=== PATIENT | male | born 1960 | race Caucasian/White ===

== ENCOUNTER 2018-01-07 11:20 | Observation (INO) | payer OTHER ==
[2018-01-07] MEDS ORDERED: ASPIRIN 81 MG CHEWABLE TABLETS PO ONE (11:34)
[2018-01-07] MEDS ORDERED: dilTIAZem HCL 50 MG/10 ML - 10 ML VIAL IVPUSH ONE (11:34)
[2018-01-07] MEDS ORDERED: SODIUM CHLORIDE 1,000 ML IV SCH (11:45)
[2018-01-07] MEDS ORDERED: dilTIAZem HCL 125 MG/25 ML - 25 ML VIAL ONE (11:48)
[2018-01-07] MEDS ORDERED: ACETAMINOPHEN 325 MG TABLET (FP) PO ONE (11:51)
[2018-01-07 12:10] LABS: BASO % 0.6 % (0-2.0); EOS % 1.6 % (0-4.5); HEMATOCRIT 47.3 % (35.4-49); HEMOGLOBIN 16.3 GM/dL (11.7-16.9); LYMPH % 25.4 % (8-40); MCH 31.5 pg (25.7-33.7); MCHC 34.5 g/dl (32.0-35.9); MEAN CELL VOLUME 91.3 fl (80-96); MEAN PLT VOLUME 8.1 fl (7.5-11.1); MONO % 8.9 % (3.8-10.2); NEUT % 63.5 % (42.8-82.8); PLATELET COUNT 135 K/MM3 (134-434); RBC 5.18 M/mm3 (4.00-5.60); RDW 13.3 % (11.9-15.9); WHITE BLOOD COUNT 6.6 K/mm3 (4.0-10.0)
[2018-01-07] MEDS ORDERED: ASPIRIN 81 MG CHEWABLE TABLETS ONE (12:24)
[2018-01-07] MEDS ORDERED: ACETAMINOPHEN 325 MG TABLET (FP) ONE (12:24)
[2018-01-07 12:26] LABS: INR 1.04 (0.82-1.09); PROTHROMBIN TIME (PATIENT) 11.7 SEC (9.98-11.88)
[2018-01-07 12:46] LABS: ALBUMIN 4.1 g/dl (3.4-5.0); ANION GAP 9 (8-16); BILIRUBIN,TOTAL 0.8 mg/dL (0.2-1.0); BLOOD UREA NITROGEN 11 mg/dL (7-18); CALCIUM 8.6 mg/dL (8.5-10.1); CHLORIDE 104 mmol/L (98-107); CO2 25 mmol/L (21-32); CREATININE 0.8 mg/dL (0.7-1.3); GLUCOSE,RANDOM 119 mg/dL (74-106); MAGNESIUM 2.2 mg/dL (1.8-2.4); POTASSIUM 3.9 mmol/L (3.5-5.1); SGOT/AST 20 U/L (15-37); SGPT/ALT 40 U/L (12-78); SODIUM 138 mmol/L (136-145); TOT PROT 7.5 g/dl (6.4-8.2)
[2018-01-07 12:49] LABS: ALK PHOS 125 U/L (45-117)
--- NOTE | 2018-01-07 14:08 | EKG ---
Test Reason : Blood Pressure : / mmHG Vent. Rate : 151 BPM Atrial Rate : 151 BPM P-R Int : 132 ms QRS Dur : 140 ms QT Int : 278 ms P-R-T Axes : 000 038 -73 degrees QTc Int : 440 ms ATRIAL FLUTTER WITH 2 TO 1 BLOCK NON-SPECIFIC INTRA-VENTRICULAR CONDUCTION BLOCK NONSPECIFIC T WAVE ABNORMALITY ABNORMAL ECG NO PREVIOUS ECGS AVAILABLE Confirmed by MD John, Anthony ([id number]) on 01/07/2018 2:08:17 PM Referred By: Confirmed By:Anthony Lopez MD
--- NOTE | 2018-01-07 14:24 | PDOC ---
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 HEAD: Normal EYES: PERRLA, EOMI, sclera anicteric, conjunctiva clear. ENT: Ears normal, nares patent, oropharynx clear without exudates. Moist mucous membranes. NECK: Normal range of motion, supple without lymphadenopathy, JVD, LUNGS: Breath sounds equal, clear to auscultation bilaterally. No wheezes, and no crackles. HEART: Irregularly irregular, tachycardiac ABDOMEN: Soft, nontender, normoactive bowel sounds. No guarding, no rebound. No masses palpable. EXTREMITIES: Normal range of motion, no edema. No clubbing or cyanosis. No erythema, or tenderness. NEUROLOGICAL: Cranial nerves II through XII grossly intact. Normal speech. No focal neurological deficits. MUSCULOSKELETAL: Back non-tender to palpation, no CVA tenderness SKIN: Warm, Dry, normal turgor, no rashes or lesions noted. - Medical Decision Making 01/07/18 14:25 57-year-old male presenting to the emergency department with new onset atrial fibrillation. Patient written for Cardizem 20 mg IV Patient given normal saline fluids Labs sent Pt should have TSH added on No signs or symptoms of PE 01/07/18 14:26 Laboratory Tests 01/07/18 01/07/18 01/07/18 11:55 11:55 11:55 WBC 6.6 Hgb 16.3 Hct 47.3 Plt Count 135 Neutrophils % 63.5 Lymphocytes % 25.4 INR 1.04 BUN 11 Creatinine 0.8 Creatine Kinase 281 Creatine Kinase Index 1.1 CK-MB (CK-2) 3.101 Troponin I < 0.02 Case reviewed with Hospitalist team Will admit to tele Pt seen in the ER by Dr Cortez Pt to be started on Eliquis and Metoprolol 25 mg po BID Clinical Impression: New onset Afib, initial presentation 01/07/18 18:59 EKG 11:26AM: Aflutter rate of 151 bpm, Right axis deviation, ST depressions inferiorly, t waves upright EKG 12:55: Aflutter rate of 82 bpm, axis nml, intervals nml, t wave inversions v5, v6, biphasic v4 Discharge Disposition - Diagnosis Afib Qualifiers: Atrial fibrillation type: unspecified Qualified Code(s): I48.91 - Unspecified atrial fibrillation - Discharge Dispostion Condition at time of disposition: Stable Admit: Yes - Referrals - Patient Instructions - Post Discharge Activity
[2018-01-07] MEDS ORDERED: APIXABAN 5 MG TABLET PO ONE (14:28)
--- NOTE | 2018-01-07 16:26 | HP ---
CHIEF COMPLAINT: palpitations PCP: HISTORY OF PRESENT ILLNESS: Patient is 57 year old male with a significant past medical history of diabetes mellitus, hypertriglyceridemia, and psoriasis. 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 Patient states that he has had palpitaion for the past several months. He denies chest pain, denies shortness of breath. He states that at times he feels that his heart races, but does cause him any shortness of breath. In the ED he is in no acute distress, at the bedside. No chest pain, tolerating room air. ER course was notable for: (1) ekg: aflutter 151 (2) trop neg x 1 (3) Recent Travel: PAST MEDICAL HISTORY: PAST SURGICAL HISTORY: Social History: Smoking: Alcohol: Drugs: Family History: Allergies No Known Allergies Allergy (Verified 01/07/18 11:24) HOME MEDICATIONS: Home Medications Medication Instructions Recorded No Home Medications 0 dose .ROUTE UTDICT 10/09/13 Ibuprofen [Motrin -] 600 mg PO TID #21 tablet 09/28/14 Methocarbamol [Robaxin -] 1,000 mg PO BID #28 tablet 09/28/14 REVIEW OF SYSTEMS CONSTITUTIONAL: Absent: fever, chills, diaphoresis, generalized weakness, malaise, loss of appetite, weight change HEENT: Absent: rhinorrhea, nasal congestion, throat pain, throat swelling, difficulty swallowing, mouth swelling, ear pain, eye pain, visual changes RESPIRATORY: Absent: cough, shortness of breath, dyspnea with exertion, orthopnea, wheezing, stridor, hemoptysis GASTROINTESTINAL: Absent: abdominal pain, abdominal distension, nausea, vomiting, diarrhea, constipation, melena, hematochezia GENITOURINARY: Absent: dysuria, frequency, urgency, hesitancy, hematuria, flank pain, genital pain MUSCULOSKELETAL: Absent: myalgia, arthralgia, joint swelling, back pain, neck pain HEMATOLOGIC/IMMUNOLOGIC: Absent: easy bleeding, easy bruising, lymphadenopathy, frequent infections ENDOCRINE: Absent: unexplained weight gain, unexplained weight loss, heat intolerance, cold intolerance NEUROLOGIC: Absent: headache, focal weakness or paresthesias, dizziness, unsteady gait, seizure, mental status changes, bladder or bowel incontinence PSYCHIATRIC: Absent: anxiety, depression, suicidal or homicidal ideation, hallucinations. PHYSICAL EXAMINATION Vital Signs - 24 hr 01/07/18 01/07/18 01/07/18 11:28 13:27 14:26 Temperature 98.2 F Pulse Rate 150 H Pulse Rate [ 74 78 Left Radial] Respiratory 18 18 16 Rate Blood Pressure 134/94 Blood Pressure 107/62 120/90 [Right Arm] O2 Sat by Pulse 100 98 98 Oximetry (%) 01/07/18 15:20 Temperature Pulse Rate Pulse Rate [ 78 Left Radial] Respiratory 20 Rate Blood Pressure Blood Pressure 108/70 [Right Arm] O2 Sat by Pulse Oximetry (%) GENERAL: The patient is in no acute distress. Awake, alert and oriented x 3 HEAD: Normal, no signs of trauma EYES: PERRLA, EOMI, sclera anicteric, conjunctiva clear. ENT: Ears normal, nares patent, oropharynx clear without exudates. Moist mucous membranes. NECK: Normal range of motion, supple without lymphadenopathy, JVD, LUNGS: Breath sounds equal, clear to auscultation bilaterally. No wheezes, and no crackles. HEART: Irregularly irregular, tachycardiac ABDOMEN: Soft, nontender, normoactive bowel sounds. No guarding, no rebound. No masses palpable. EXTREMITIES: Normal range of motion, no edema. No clubbing or cyanosis. No erythema, or tenderness. NEUROLOGICAL: Cranial nerves II through XII grossly intact. Normal speech. No focal neurological deficits. MUSCULOSKELETAL: Back non-tender to palpation, no CVA tenderness SKIN: generalized psioriosis Laboratory Results - last 24 hr 01/07/18 01/07/18 01/07/18 11:55 11:55 11:55 WBC 6.6 RBC 5.18 Hgb 16.3 Hct 47.3 MCV 91.3 MCH 31.5 MCHC 34.5 RDW 13.3 Plt Count 135 MPV 8.1 Neutrophils % 63.5 Lymphocytes % 25.4 Monocytes % 8.9 Eosinophils % 1.6 Basophils % 0.6 PT with INR 11.70 INR 1.04 Sodium 138 Potassium 3.9 Chloride 104 Carbon Dioxide 25 Anion Gap 9 BUN 11 Creatinine 0.8 Creat Clearance w eGFR > 60 Random Glucose 119 H Calcium 8.6 Magnesium 2.2 Total Bilirubin 0.8 AST 20 ALT 40 Alkaline Phosphatase 125 H Creatine Kinase 281 Creatine Kinase Index 1.1 CK-MB (CK-2) 3.101 Troponin I < 0.02 Total Protein 7.5 Albumin 4.1 TSH 01/07/18 11:55 WBC RBC Hgb Hct MCV MCH MCHC RDW Plt Count MPV Neutrophils % Lymphocytes % Monocytes % Eosinophils % Basophils % PT with INR INR Sodium Potassium Chloride Carbon Dioxide Anion Gap BUN Creatinine Creat Clearance w eGFR Random Glucose Calcium Magnesium Total Bilirubin AST ALT Alkaline Phosphatase Creatine Kinase Creatine Kinase Index CK-MB (CK-2) Troponin I Total Protein Albumin TSH 1.79 ASSESSMENT/PLAN: Patient is 57 year old male with a significant past medical history of diabetes mellitus, hypertriglyceridemia, and psoriasis. 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 Patient states that he has had palpitaion for the past several months. He denies chest pain, denies shortness of breath. He states that at times he feels that his heart races, but does cause him any shortness of breath. In the ED he is in no acute distress, at the bedside. No chest pain, tolerating room air. Cardiology Atrial Fibrillarion with RVR, acute Rule out ACS ekg: aflutter 151 Trend troponins Rate control with metoprololm 50mg bid Lisinopril Eliquis 5mg BID Monitor on tele Possible synchronized cardioversion if remains in afib. Cardiology following Endocrine Diabetes Mellitus hmga1c in a.m. Monitor BGMs, Novolog On Home Metformin HLD, chronic Lipid panel in a.m. Skin Psiorosis, chronic outpatient followup Previously on Methotraxate F.E.N. Fluids: tolerating PO Electrolytes: monitor Nutrition: diabetic diet Prophylaxis: DVT: Elilquis BID GI: deferred Disposition. full code. Visit type - Emergency Visit Emergency Visit: Yes ED Registration Date: 01/07/18 Care time: The patient presented to the Emergency Department on the above date and was hospitalized for further evaluation of their emergent condition. - New Patient This patient is new to me today: Yes Date on this admission: 01/07/18 - Critical Care Critical Care patient: No
--- NOTE | 2018-01-07 16:35 | EKG ---
Test Reason : Blood Pressure : / mmHG Vent. Rate : 082 BPM Atrial Rate : 208 BPM P-R Int : 000 ms QRS Dur : 116 ms QT Int : 388 ms P-R-T Axes : 000 043 052 degrees QTc Int : 453 ms ATRIAL FIBRILLATION T WAVE ABNORMALITY, CONSIDER LATERAL ISCHEMIA ABNORMAL ECG Confirmed by MD John, Anthony ([id number]) on 01/07/2018 4:35:31 PM Referred By: Confirmed By:Anthony Lopez MD
--- NOTE | 2018-01-07 16:38 | PDOC ---
History of Present Illness - General Chief Complaint: Palpitations Stated Complaint: CHEST PAIN (PCP SENT) Time Seen by Provider: 01/07/18 11:33 History Source: Patient Exam Limitations: No Limitations - History of Present Illness Initial Comments: 01/07/18 17:07 Patient is 57M with history of DM, hypertriglyceridemia, and psoriasis here today with a complaint of palpitations. He states that he's been having runs of palpitations for the past few days, and paperwork from his agricultural extension specialist states that he's had problems for the past several months. He denies chest pain, saying that it just feels like his heart is racing. He also denies shortness of breath. He denies nausea, vomiting, fevers and chills. Paperwork from his agricultural extension specialist states that he was found to be in stable afultter at 150 as an outpatient. Past History - Past Medical History Allergies/Adverse Reactions: Allergies Allergy/AdvReac Type Severity Reaction Status Date / Time No Known Allergies Allergy Verified 01/07/18 11:24 Home Medications: Ambulatory Orders No Home Medications 0 dose .ROUTE UTDICT 10/09/13 Ibuprofen [Motrin -] 600 mg PO TID #21 tablet 09/28/14 Methocarbamol [Robaxin -] 1,000 mg PO BID #28 tablet 09/28/14 COPD: No Diabetes: Yes HTN: Yes Other medical history: PSORIASIS - Surgical History Abdominal Surgery: Yes (hernia repair) - Immunization History Td Vaccination: No TDAP Vaccination: No Immunization Up to Date: Yes - Suicide/Smoking/Psychosocial Hx Smoking History: Never smoked Have you smoked in the past 12 months: No Information on smoking cessation initiated: No Hx Alcohol Use: No Drug/Substance Use Hx: No Substance Use Type: None Review of Systems - Review of Systems Comments:: 01/07/18 17:10 GENERAL/CONSTITUTIONAL: No fever or chills. No weakness. HEAD, EYES, EARS, NOSE AND THROAT: No change in vision. No ear pain or discharge. No sore throat. CARDIOVASCULAR: Positive for palpitations. No chest pain or shortness of breath RESPIRATORY: No cough, wheezing, or hemoptysis. GASTROINTESTINAL: No nausea, vomiting, diarrhea or constipation. GENITOURINARY: No dysuria, frequency, or change in urination. MUSCULOSKELETAL: No joint or muscle swelling or pain. Positive for chronic neck pain. SKIN: No rash NEUROLOGIC: No headache, vertigo, loss of consciousness, or change in strength/ sensation. ENDOCRINE: No increased thirst. No abnormal weight change HEMATOLOGIC/LYMPHATIC: No anemia, easy bleeding, or history of blood clots. ALLERGIC/IMMUNOLOGIC: No hives or skin allergy. *Physical Exam - Vital Signs Last Vital Signs Temp Pulse Resp BP Pulse Ox 98.2 F 78 20 108/70 98 01/07/18 11:28 01/07/18 15:20 01/07/18 15:20 01/07/18 15:20 01/07/18 14:26 - Physical Exam Comments: 01/07/18 17:11 GENERAL: Awake, alert, and fully oriented, in no acute distress HEAD: No signs of trauma, normocephalic, atraumatic EYES: PERRLA, EOMI, sclera anicteric, conjunctiva clear ENT: Auricles normal inspection, hearing grossly normal, nares patent, oropharynx clear without exudates. Moist mucosa NECK: Normal ROM, supple, no lymphadenopathy, JVD, or masses LUNGS: No distress, speaks full sentences, clear to auscultation bilaterally HEART: Tachycardic, no murmurs, rubs or gallops, peripheral pulses normal and equal bilaterally. ABDOMEN: Soft, nontender, normoactive bowel sounds. No guarding, no rebound. No masses EXTREMITIES: Normal inspection, Normal range of motion, no edema. No clubbing or cyanosis. NEUROLOGICAL: Cranial nerves II through XII grossly intact. Normal speech, no focal sensorimotor deficits SKIN: Warm, Dry, normal turgor, multiple rashes consistent with psoriasis on extensor surfaces ED Treatment Course - LABORATORY CBC & Chemistry Diagram: 01/07/18 11:55 01/07/18 11:55 - ADDITIONAL ORDERS Additional order review: Laboratory Results 01/07/18 01/07/18 01/07/18 11:55 11:55 11:55 PT with INR 11.70 INR 1.04 Sodium 138 Potassium 3.9 Chloride 104 Carbon Dioxide 25 Anion Gap 9 BUN 11 Creatinine 0.8 Creat Clearance w eGFR > 60 Random Glucose 119 H Calcium 8.6 Magnesium 2.2 Total Bilirubin 0.8 AST 20 ALT 40 Alkaline Phosphatase 125 H Creatine Kinase 281 Creatine Kinase Index 1.1 CK-MB (CK-2) 3.101 Troponin I < 0.02 Total Protein 7.5 Albumin 4.1 TSH 1.79 01/07/18 11:55 RBC 5.18 MCV 91.3 MCHC 34.5 RDW 13.3 MPV 8.1 Neutrophils % 63.5 Lymphocytes % 25.4 Monocytes % 8.9 Eosinophils % 1.6 Basophils % 0.6 - Medications Given in the ED: ED Medications Discontinued Medications Generic Name Dose Route Start Last Admin Trade Name Reji PRN Reason Stop Dose Admin Acetaminophen 650 mg 01/07/18 11:51 01/07/18 12:31 Tylenol - PO 01/07/18 11:52 650 mg ONCE ONE Administration Apixaban 5 mg 01/07/18 14:28 01/07/18 15:19 Eliquis - PO 01/07/18 14:29 5 mg ONCE ONE Administration Aspirin 162 mg 01/07/18 11:34 01/07/18 12:31 Asa - PO 01/07/18 11:35 162 mg ONCE ONE Administration Diltiazem HCl 20 mg 01/07/18 11:34 01/07/18 11:58 Cardizem Injection - IVPUSH 01/07/18 11:35 20 mg ONCE ONE Administration Medical Decision Making - Medical Decision Making 01/07/18 17:11 Patient is 57M with history of DM, psoriasis, and hypertriglyceridemia here today with palpitations. Vital signs notable for tachycardia to 150s. EKG showed aflutter with 2:1 conduction and a rate of 150. Blood pressure was stable of 140/110. Patient was given 20mg of diltiazem and was then rate controlled into the 80s with stable blood pressures. 01/07/18 17:16 Laboratory Tests 01/07/18 01/07/18 01/07/18 11:55 11:55 11:55 WBC 6.6 Hgb 16.3 Hct 47.3 Plt Count 135 INR 1.04 Troponin I < 0.02 CBC normal. INR normal. Trop negative. CMP unremarkable. Patient admitted to Dr Ramesh. *DC/Admit/Observation/Transfer Diagnosis at time of Disposition: Afib Qualifiers: Atrial fibrillation type: unspecified Qualified Code(s): I48.91 - Unspecified atrial fibrillation - Discharge Dispostion Condition at time of disposition: Stable Admit: Yes - Referrals - Patient Instructions - Post Discharge Activity
[2018-01-07] MEDS ORDERED: dilTIAZem HCL 30 MG TABLET (FP) PO ONE (18:24)
[2018-01-07] MEDS ORDERED: dilTIAZem HCL 30 MG TABLET (FP) ONE (18:32)
[2018-01-07] MEDS ORDERED: dilTIAZem HCL 30 MG TABLET (FP) PO SCH (19:00)
--- NOTE | 2018-01-07 19:03 | CON.CARD ---
Consult Consult Specialty:: Cardiology Referred by:: Hospitalist Reason for Consultation:: Cardiac evaluation - History of Present Illness Chief Complaint: Palpitations History of Present Illness: Patient is a 57 year old male with underlying history of diabetes mellitus and hypercholesterolemia who presents to ED with complaints of palpitations. He was seen by Dr. José Miguel Blood in the office who noticed atrial flutter with RVR on ECG and was referred for admission. Patient states that he has had palpitation for several months. He denies chest pain or shortness of breath. He denies paroxysmal nocturnal dyspnea or orthopnea. He denies fever or chills. He denies headache or lightheadedness. Denies any syncopal episode. Heart rate was measured 150 bpm. He was given Cardizem IV in the ED. Patient also has history fo psoriasis. - History Source History Provided By: Patient, Family Member, Medical Record Limitations to Obtaining History: No Limitations - Past Medical History Cardio/Vascular: Yes: Hyperlipdemia Endocrine: Yes: Diabetes Mellitus - Past Surgical History Past Surgical History: Yes: Hernia Repair - Alcohol/Substance Use Hx Alcohol Use: No - Smoking History Smoking history: Never smoked Have you smoked in the past 12 months: No Home Medications - Allergies Allergies/Adverse Reactions: Allergies Allergy/AdvReac Type Severity Reaction Status Date / Time No Known Allergies Allergy Verified 01/07/18 11:24 - Home Medications Home Medications: Ambulatory Orders No Home Medications 0 dose .ROUTE UTDICT 10/09/13 Ibuprofen [Motrin -] 600 mg PO TID #21 tablet 09/28/14 Methocarbamol [Robaxin -] 1,000 mg PO BID #28 tablet 09/28/14 Family Disease History - Family Disease History Family History: Denies Review of Systems - Review of Systems Constitutional: denies: Chills, Fever Cardiovascular: reports: Palpitations. denies: Chest Pain, Shortness of Breath Respiratory: denies: Cough, Hemoptysis, Orthopnea, PND, SOB, SOB on Exertion Gastrointestinal: denies: Abdominal Pain, Constipation, Diarrhea, Melena, Nausea , Rectal Bleeding, Vomiting Musculoskeletal: denies: Back Pain, Joint Pain Neurological: denies: Dizziness, Headache, Seizure, Syncope, Unsteady Gait, Weakness Vital Signs: Vital Signs Temperature 98.2 F 01/07/18 11:28 Pulse Rate 144 H 01/07/18 18:39 Respiratory Rate 20 01/07/18 18:39 Blood Pressure 136/89 01/07/18 18:39 O2 Sat by Pulse Oximetry (%) 99 01/07/18 18:39 Constitutional: Yes: Well Nourished Eyes: Yes: Conjunctiva Clear, PERRL HENT: Yes: Atraumatic Neck: Yes: Supple Respiratory: Yes: CTA Bilaterally Gastrointestinal: Yes: Normal Bowel Sounds, Soft. No: Tenderness Cardiovascular: Yes: Tachycardia, Pulse Irregular JVD: No Carotid Bruit: No PMI: Non-Displaced Heart Sounds: Yes: S1, S2 Murmur: Yes: Systolic Murmur, Grade 1 Edema: No - Other Data Labs, Other Data: CBC, BMP 01/07/18 11:55 01/07/18 11:55 INR, PTT INR 1.04 (0.82-1.09) 01/07/18 11:55 Troponin, BNP 01/07/18 11:55 Troponin I < 0.02 Laboratory Results - last 24 hr 01/07/18 01/07/18 01/07/18 11:55 11:55 11:55 WBC 6.6 RBC 5.18 Hgb 16.3 Hct 47.3 MCV 91.3 MCH 31.5 MCHC 34.5 RDW 13.3 Plt Count 135 MPV 8.1 Neutrophils % 63.5 Lymphocytes % 25.4 Monocytes % 8.9 Eosinophils % 1.6 Basophils % 0.6 PT with INR 11.70 INR 1.04 Sodium 138 Potassium 3.9 Chloride 104 Carbon Dioxide 25 Anion Gap 9 BUN 11 Creatinine 0.8 Creat Clearance w eGFR > 60 Random Glucose 119 H Calcium 8.6 Magnesium 2.2 Total Bilirubin 0.8 AST 20 ALT 40 Alkaline Phosphatase 125 H Creatine Kinase 281 Creatine Kinase Index 1.1 CK-MB (CK-2) 3.101 Troponin I < 0.02 Total Protein 7.5 Albumin 4.1 TSH 01/07/18 11:55 WBC RBC Hgb Hct MCV MCH MCHC RDW Plt Count MPV Neutrophils % Lymphocytes % Monocytes % Eosinophils % Basophils % PT with INR INR Sodium Potassium Chloride Carbon Dioxide Anion Gap BUN Creatinine Creat Clearance w eGFR Random Glucose Calcium Magnesium Total Bilirubin AST ALT Alkaline Phosphatase Creatine Kinase Creatine Kinase Index CK-MB (CK-2) Troponin I Total Protein Albumin TSH 1.79 Atrial flutter with RVR Echo: Report Reviewed (Moderate LV systolic dysfunction with global hypokinesia) Imaging - Results Chest X-ray: Report Reviewed (Unremarkable) EKG: Report Reviewed Problem List - Problems (1) Atrial flutter with rapid ventricular response Code(s): I48.92 - UNSPECIFIED ATRIAL FLUTTER (2) Hypercholesterolemia Code(s): E78.00 - PURE HYPERCHOLESTEROLEMIA, UNSPECIFIED (3) Dilated cardiomyopathy Code(s): I42.0 - DILATED CARDIOMYOPATHY (4) Psoriasis Code(s): L40.9 - PSORIASIS, UNSPECIFIED (5) Diabetes mellitus Code(s): E11.9 - TYPE 2 DIABETES MELLITUS WITHOUT COMPLICATIONS Qualifiers: Diabetes mellitus type: type 2 Diabetes mellitus complication status: without complication Diabetes mellitus intermediate card tender insulin use: without intermediate card tender use Qualified Code(s): E11.9 - Type 2 diabetes mellitus without complications (6) Afib Code(s): I48.91 - UNSPECIFIED ATRIAL FIBRILLATION Qualifiers: Atrial fibrillation type: unspecified Qualified Code(s): I48.91 - Unspecified atrial fibrillation Assessment/Plan 1. Atrial flutter/fibrillation with RVR, ? duration 2. LV systolic dysfunction compatible with dilated cardiomyopathy 3. Hypercholesterolemia 4. Type 2 diabetes mellitus 5. History of psoriasis PLAN: 1. Initiate Eliquis 5 mg twice a day. ASA may be discontinued 2. Consider Metoprolol Tartrate 25 mg twice a day and uptitrate 3. Add ACEI or ARB 4. Transthoracic echocardiography report reviewed 5. Fasting lipid panel 6. Further cardiac work up including nuclear myocardial perfusion imaging is to be considered 7. If patient remains in AF, consider synchronized cardioversion with RYAN guidance. Further plans are to follow Mukund Cortez MD
[2018-01-07] MEDS ORDERED: INSULIN SLIDING SCALE (NOVOLOG) 1 VIAL SQ SCH (22:00)
[2018-01-07] MEDS ORDERED: METOPROLOL TARTRATE 25 MG TABLET (FP) PO SCH (22:00)
[2018-01-07] MEDS ORDERED: METOPROLOL TARTRATE 50 MG TABLET (FP) PO SCH (22:00)
[2018-01-08] MEDS ORDERED: LISINOPRIL 5 MG TABLET (FP) ONE (00:11)
[2018-01-08] MEDS ORDERED: METOPROLOL TARTRATE 50 MG TABLET (FP) ONE ×2 (00:11→01:56)
[2018-01-08] MEDS ORDERED: INSULIN NPH 100 UNITS/ML *VIAL ONE (00:16)
[2018-01-08] MEDS: LISINOPRIL 5 MG TABLET (FP) PO SCH ×2 (00:34→09:45)
[2018-01-08] MEDS: INSULIN SLIDING SCALE (NOVOLOG) 1 VIAL SQ SCH ×3 (00:34→12:36)
[2018-01-08] MEDS: APIXABAN 5 MG TABLET PO SCH ×2 (00:34→09:45)
[2018-01-08] MEDS ORDERED: METOPROLOL TARTRATE 50 MG TABLET (FP) PO ONE (01:43)
[2018-01-08] MEDS ORDERED: METOPROLOL TARTRATE 5 MG/5 ML VIAL IVPUSH ONE (01:44)
[2018-01-08] MEDS ORDERED: METOPROLOL TARTRATE 5 MG/5 ML VIAL ONE (01:55)
[2018-01-08 02:47] VITALS: BMI 31.1
[2018-01-08 07:10] LABS: BASO % 0.4 % (0-2.0); EOS % 1.7 % (0-4.5); HEMATOCRIT 43.7 % (35.4-49); HEMOGLOBIN 14.9 GM/dL (11.7-16.9); LYMPH % 13.6 % (8-40); MCH 31.6 pg (25.7-33.7); MCHC 34.1 g/dl (32.0-35.9); MEAN CELL VOLUME 92.7 fl (80-96); MEAN PLT VOLUME 8.6 fl (7.5-11.1); NEUT % 78.3 % (42.8-82.8); PLATELET COUNT 128 K/MM3 (134-434); RBC 4.71 M/mm3 (4.00-5.60); RDW 13.5 % (11.9-15.9); WHITE BLOOD COUNT 8.9 K/mm3 (4.0-10.0)
[2018-01-08 07:38] LABS: ALBUMIN 3.4 g/dl (3.4-5.0); ANION GAP 8 (8-16); BLOOD UREA NITROGEN 15 mg/dL (7-18); CALCIUM 8.6 mg/dL (8.5-10.1); CHLORIDE 108 mmol/L (98-107); CO2 23 mmol/L (21-32); GLUCOSE,RANDOM 125 mg/dL (74-106); MAGNESIUM 2.4 mg/dL (1.8-2.4); POTASSIUM 3.9 mmol/L (3.5-5.1); SODIUM 139 mmol/L (136-145)
[2018-01-08 07:49] LABS: BILIRUBIN,TOTAL 0.9 mg/dL (0.2-1.0); CHOLESTEROL 90 mg/dL (50-200); CREATININE 0.8 mg/dL (0.7-1.3); LDL CHOLESTEROL (ONLY SJRH) 48 mg/dL (5-100); SGOT/AST 20 U/L (15-37); SGPT/ALT 37 U/L (12-78); TRIGLYCERIDES 121 mg/dL (35-160)
[2018-01-08 07:51] LABS: ALK PHOS 72 U/L (45-117); HDL CHOLESTEROL 37 mg/dL (40-60); TOT PROT 6.2 g/dl (6.4-8.2)
[2018-01-08 08:10] VITALS: BP 97/65; PULSE 64; TEMP 97.9
--- NOTE | 2018-01-08 09:29 | PN ---
Progress Note, Physician History of Present Illness: Palpitations resolved, PAF->SR. - Current Medication List Current Medications: Active Medications Apixaban (Eliquis -) 5 mg PO BID [facility] Last Admin: 01/08/18 00:34 Dose: 5 mg Insulin Aspart (Novolog Vial Sliding Scale -) 1 vial SQ ACHS [facility] PRN Reason: Protocol Last Admin: 01/08/18 07:30 Dose: Not Given Lisinopril (Prinivil) 5 mg PO DAILY [facility] Last Admin: 01/08/18 00:34 Dose: 5 mg Metoprolol Tartrate (Lopressor -) 50 mg PO BID [facility] Last Admin: 01/08/18 00:34 Dose: 50 mg - Objective Vital Signs: Vital Signs Temperature 97.9 F 01/08/18 08:09 Pulse Rate 64 01/08/18 08:09 Respiratory Rate 20 01/08/18 08:09 Blood Pressure 97/65 01/08/18 08:09 O2 Sat by Pulse Oximetry (%) 97 01/08/18 02:30 Constitutional: Yes: No Distress, Calm, Thin Neck: Yes: Supple Cardiovascular: Yes: Regular Rate and Rhythm Respiratory: Yes: Regular, CTA Bilaterally Edema: No Labs: CBC, BMP 01/08/18 06:25 01/08/18 06:25 INR, PTT INR 1.04 (0.82-1.09) 01/07/18 11:55 - ....Imaging EKG: Report Reviewed (Tele: PAF->SR) Problem List - Problems (1) Tachycardia induced cardiomyopathy Code(s): R00.0 - TACHYCARDIA, UNSPECIFIED; I43 - CARDIOMYOPATHY IN DISEASES CLASSIFIED ELSEWHERE (2) Intermittent palpitations Code(s): R00.2 - PALPITATIONS (3) Atrial flutter with rapid ventricular response Code(s): I48.92 - UNSPECIFIED ATRIAL FLUTTER (4) Diabetes mellitus Code(s): E11.9 - TYPE 2 DIABETES MELLITUS WITHOUT COMPLICATIONS Qualifiers: Diabetes mellitus type: type 2 Diabetes mellitus complication status: without complication Diabetes mellitus fpc insulin use: 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 Paroxysmal Atrial flutter/fibrillation with RVR back in sinus rhythm 2. LV systolic dysfunction compatible with dilated cardiomyopathy (suspect tachycardia-induced) 3. Hyperlipidemia 4. Type 2 diabetes mellitus 5. History of psoriasis PLAN: 1. Started Eliquis 5 mg twice a day given elevated risk score 2. Change to Toprol XL 50 mg daily and uptitrate as tolerated 3. Increase lisinopril 10 qd and eventually add Aldactone 25 qd as hemodynamics tolerates 5. Decrease Zocor 20 qhs per fasting lipid panel 6. Further cardiac work up including nuclear myocardial perfusion imaging vs R& LHC is to be considered as outpatient, may d/c from CV standpoint with f/u with me in office [phone].
[2018-01-08] MEDS ORDERED: LISINOPRIL 10 MG TABLET (FP) PO SCH (09:48)
[2018-01-08] MEDS ORDERED: ASPIRIN COATED 81 MG TABLET.EC PO SCH (10:00)
--- NOTE | 2018-01-08 12:07 | DS ---
Physical Exam: SUBJECTIVE: Patient seen and examined. No palpitations, no chest pain or sob reported OBJECTIVE: Vital Signs Period Temp Pulse Resp BP Sys/Madsen Pulse Ox Last 24 Hr 97.9 F-98.7 F 64-148 16-20 95-136/59-98 96-99 PE Neuro: alert, awake, cn 2-12intact Pulm:CTAB CV: s1 s2 rrr Abd: s nt nd + bs Ext: no le edema, warm skin: psoriasis Laboratory Results - last 24 hr 01/07/18 01/07/18 01/08/18 11:55 23:49 00:26 WBC RBC Hgb Hct MCV MCH MCHC RDW Plt Count MPV Neutrophils % Lymphocytes % Monocytes % Eosinophils % Basophils % PT with INR INR Sodium Potassium Chloride Carbon Dioxide Anion Gap BUN Creatinine Creat Clearance w eGFR POC Glucometer [phone] Random Glucose Calcium Magnesium Total Bilirubin AST ALT Alkaline Phosphatase Creatine Kinase Creatine Kinase Index CK-MB (CK-2) Troponin I < 0.02 Total Protein Albumin Triglycerides Cholesterol Total LDL Cholesterol HDL Cholesterol TSH 1.79 01/08/18 01/08/18 01/08/18 06:25 06:25 07:38 WBC 8.9 D RBC 4.71 Hgb 14.9 Hct 43.7 MCV 92.7 MCH 31.6 MCHC 34.1 RDW 13.5 Plt Count 128 L MPV 8.6 Neutrophils % 78.3 D Lymphocytes % 13.6 D Monocytes % 6.0 Eosinophils % 1.7 Basophils % 0.4 PT with INR INR Sodium 139 Potassium 3.9 Chloride 108 H Carbon Dioxide 23 Anion Gap 8 BUN 15 D Creatinine 0.8 Creat Clearance w eGFR > 60 POC Glucometer 145 Random Glucose 125 H Calcium 8.6 Magnesium 2.4 Total Bilirubin 0.9 AST 20 ALT 37 Alkaline Phosphatase 72 D Creatine Kinase Creatine Kinase Index CK-MB (CK-2) Troponin I Total Protein 6.2 L Albumin 3.4 Triglycerides 121 Cholesterol 90 Total LDL Cholesterol 48 HDL Cholesterol 37 L [facility] COURSE: Date of Admission:01/07/18 Date of Discharge: 01/08/18 Minutes to complete discharge: 37 Discharge Summary Reason For Visit: A-FIB Current Active Problems Afib (Acute) Atrial flutter with rapid ventricular response (Acute) Diabetes mellitus (Acute) Dilated cardiomyopathy (Acute) Hypercholesterolemia (Acute) Intermittent palpitations (Acute) Psoriasis (Acute) Tachycardia induced cardiomyopathy (Acute) Hospital Course: Hospital Course: 57 year old male with underlying history of DM II and hypercholesterolemia, psoriasis presented to ED with complaints of palpitations after being seen in [employer]ographic Information [employer] Dr. Blood office with noted atrial flutter with RVR on ECG. Palpitation have been going on for several months. In ED he was given IV cardizem Plan: 1. PAF/A fib w RVR PT converted to SR Started on Eliquis 5mg BID, toprol xl 50mg daily, and lisinopril 10mg daily Zocor decreased to 20mg HS Cardiology outpt follow up next week Pt aware and agree to above plan Condition: Stable - Instructions Diet, Activity, Other Instructions: Please return to the ED for any new, persistent, or worsening symptoms. Follow up with your PCP in 1 week Take new medications as directed on home discharge medication list Make an appt to see Cardiology Dr. Blood in 1 week for outpt stress test, he is expecting you [phone]. Referrals: Juan A Hill MD [Primary Care Provider] - José Miguel Blood MD [Staff Physician] - 01/14/18 Disposition: HOME - Home Medications Comprehensive Discharge Medication List: Ambulatory Orders Methocarbamol [Robaxin -] 1,000 mg PO BID #28 tablet 09/28/14 Apixaban [Eliquis -] 5 mg PO BID #60 tablet 01/08/18 Atorvastatin Ca [Lipitor] 20 mg PO HS #30 tablet 01/08/18 Lisinopril [Prinivil] 10 mg PO DAILY #30 tablet 01/08/18 Metoprolol Succinate [Toprol XL -] 50 mg PO DAILY #30 tab.sr.24h 01/08/18 This patient is new to me today: Yes Date on this admission: 01/08/18 Emergency Visit: Yes ED Registration Date: 01/07/18 Care time: The patient presented to the Emergency Department on the above date and was hospitalized for further evaluation of their emergent condition. Critical Care patient: No - Discharge Referral Referred to [facility] Med P.C.: No
--- NOTE | 2018-01-08 12:34 | EKG ---
Test Reason : Blood Pressure : / mmHG Vent. Rate : 065 BPM Atrial Rate : 065 BPM P-R Int : 162 ms QRS Dur : 110 ms QT Int : 442 ms P-R-T Axes : 055 052 066 degrees QTc Int : 459 ms NORMAL SINUS RHYTHM ABNORMAL ECG WHEN COMPARED WITH ECG OF 08-JAN-2018 01:40, SINUS RHYTHM HAS REPLACED ATRIAL FIBRILLATION QT HAS LENGTHENED Confirmed by SUMANTH ROE, CARON ([id number]) on 01/08/2018 12:34:38 PM Referred By: DIANA STEPHENSON DR Confirmed By:CARON JULIO MD
[2018-01-08] MEDS ORDERED: ATORVASTATIN CA 20 MG TABLET (FP) PO SCH (22:00)
--- NOTE | 2018-01-09 11:52 | EKG ---
Test Reason : Blood Pressure : / mmHG Vent. Rate : 066 BPM Atrial Rate : 375 BPM P-R Int : 000 ms QRS Dur : 120 ms QT Int : 386 ms P-R-T Axes : 000 043 221 degrees QTc Int : 404 ms ATRIAL FIBRILLATION WITH PREMATURE VENTRICULAR OR ABERRANTLY CONDUCTED COMPLEXES NON-SPECIFIC INTRA-VENTRICULAR CONDUCTION DELAY ABNORMAL ECG WHEN COMPARED WITH ECG OF 07-JAN-2018 12:55, NO SIGNIFICANT CHANGE WAS FOUND Confirmed by ALESSANDRA ROE, SHLOMO ([id number]) on 01/09/2018 11:51:48 AM Referred By: Confirmed By:SHLOMO APARICIO MD
== END 2018-01-08 15:44 | disposition home or self-care (01) ==
LOC: JER 11:20 → JERBED 14:28 → J4W 01-08 02:31
PROVIDERS: ADMIT Internal Medicine; ATTEND Nurse Practitioner Acute Care
PROC: 3E033GC Introduction of Other Therapeutic Substance into Peripheral Vein, Percutaneous Approach (ICD-10-PCS; principal; 2018-01-07)
PROC: 3E0337Z Introduction of Electrolytic and Water Balance Substance into Peripheral Vein, Percutaneous Approach (ICD-10-PCS; 2018-01-07)
PROC: 3E013VG Introduction of Insulin into Subcutaneous Tissue, Percutaneous Approach (ICD-10-PCS; 2018-01-07)
DX: I48.92 Unspecified atrial flutter (principal); I48.91 Unspecified atrial fibrillation; I42.0 Dilated cardiomyopathy; E11.9 Type 2 diabetes mellitus without complications; E78.5 Hyperlipidemia, unspecified; L40.9 Psoriasis, unspecified; R00.0 Tachycardia, unspecified; R00.2 Palpitations; Z79.01 Long term (current) use of anticoagulants
CPT/HCPCS: 36415; 71045-TC-FY; 80053; 80061; 82550; 82553; 82962; 83036; 83721; 83735; 84443; 84484; 85025; 85610; 93005; 93010; 93306-TC; 96372; 96374; 96375; 99284-25; G0378

== ENCOUNTER 2018-02-05 10:46 | Day surgery (SDC) | payer OTHER ==
--- NOTE | 2018-02-05 11:48 | PN ---
Progress Note (short form) - Note Progress Note: 58 year old male h/o paroxysmal atrial fibrillation/flutter, non-ischemic cardiomyopathy suspect tachycardia induced presents for elective DCCV after 1 month of compliant Eliquis, denies symptoms. Noted to be in SR @ 60. Increased Toprol XL 50 bid, lisinopril 10 bid, maintain on Eliquis 5 bid, eventual aldosterone inhibition and referral to EP service for consideration for RF ablation, patient and voices understanding, will f/u with me next week.
--- NOTE | 2018-02-05 12:37 | EKG ---
Test Reason : Blood Pressure : / mmHG Vent. Rate : 060 BPM Atrial Rate : 060 BPM P-R Int : 160 ms QRS Dur : 112 ms QT Int : 430 ms P-R-T Axes : 058 062 081 degrees QTc Int : 430 ms NORMAL SINUS RHYTHM ABNORMAL ECG WHEN COMPARED WITH ECG OF 08-JAN-2018 11:42, NO SIGNIFICANT CHANGE WAS FOUND Confirmed by CARON JULIO MD ([id number]) on 02/05/2018 12:37:06 PM Referred By: José Miguel Blood Confirmed By:CARON JULIO MD
== END 2018-02-05 11:55 | disposition home or self-care (01) ==
LOC: JASU-ENDO 10:46
PROVIDERS: ATTEND Internal Medicine Cardiovascular Disease
PROC: 5A2204Z Restoration of Cardiac Rhythm, Single (ICD-10-PCS; principal; 2018-02-05)
DX: I48.91 Unspecified atrial fibrillation (principal); Z53.8 Procedure and treatment not carried out for other reasons
CPT/HCPCS: 93005; 93010

== ENCOUNTER 2018-07-09 11:46 | Day surgery (SDC) | payer OTHER ==
[2018-07-09 12:42] VITALS: BMI 26.6
--- NOTE | 2018-07-09 14:00 | PROC ---
Endoscopy Procedure Endoscopy procedure completed. Please see scanned procedure report.
[2018-07-09 14:02] VITALS: TEMP 97.5
[2018-07-09 14:57] VITALS: BP 115/81; PULSE 72
== END 2018-07-09 14:57 | disposition home or self-care (01) ==
LOC: JASU-ENDO 11:46
PROVIDERS: ATTEND Internal Medicine Gastroenterology
PROC: 0DJD8ZZ Inspection of Lower Intestinal Tract, Via Natural or Artificial Opening Endoscopic (ICD-10-PCS; principal; 2018-07-09 13:30)
DX: Z12.11 Encounter for screening for malignant neoplasm of colon (principal); K64.8 Other hemorrhoids

== ENCOUNTER 2018-12-08 10:26 | Emergency (ER) | payer OTHER ==
[2018-12-08 10:52] VITALS: BP 115/77; TEMP 97.4; BMI 28.2
--- NOTE | 2018-12-08 10:53 | CON.CARD ---
Consult Consult Specialty:: Cardiology Referred by:: ER Medicine Reason for Consultation:: PAF with RVR, palpitations - History of Present Illness Chief Complaint: Palpitations History of Present Illness: 58 yo male h/o DM, hyperlipidemia, paroxysmal atrial flutter dominant with atrial fibrillation and tachycardia induced cardiomyopathy s/p RF ablation of PAF April 11, 2018 presents with palpitations and recurrent rapid afib, once in ED , back in NSR with resolution of symptoms. He denies chest pain, dyspnea, near or true syncope, orthopnea, PND or LE edema. - History Source History Provided By: Patient Limitations to Obtaining History: No Limitations - Past Medical History Cardio/Vascular: Yes: Hyperlipdemia Endocrine: Yes: Diabetes Mellitus - Past Surgical History Past Surgical History: Yes: Hernia Repair - Alcohol/Substance Use Hx Alcohol Use: No - Smoking History Smoking history: Never smoked Have you smoked in the past 12 months: No Home Medications - Allergies Allergies/Adverse Reactions: Allergies Allergy/AdvReac Type Severity Reaction Status Date / Time No Known Allergies Allergy Verified 12/08/18 10:49 - Home Medications Home Medications: Ambulatory Orders Apixaban [Eliquis -] 5 mg PO BID #60 tablet 01/08/18 Lisinopril [Prinivil] 10 mg PO DAILY #30 tablet 01/08/18 Metformin HCl [Glucophage] 1,000 mg PO BID 02/05/18 Simvastatin 40 mg PO HS 02/05/18 Review of Systems - Review of Systems Cardiovascular: reports: Palpitations Constitutional: Yes: No Distress, Calm Neck: Yes: Supple Respiratory: Yes: Regular, CTA Bilaterally Gastrointestinal: Yes: Normal Bowel Sounds, Soft Cardiovascular: Yes: Regular Rate and Rhythm JVD: No Carotid Bruit: No Heart Sounds: Yes: S1, S2 Edema: No - Other Data NSR @ 76 nonspect T wave changes Problem List - Problems (1) S/P radiofrequency ablation operation for arrhythmia Code(s): Z98.890 - OTHER SPECIFIED POSTPROCEDURAL STATES; Z86.79 - PERSONAL HISTORY OF OTHER DISEASES OF THE CIRCULATORY SYSTEM (2) Afib Code(s): I48.91 - UNSPECIFIED ATRIAL FIBRILLATION Qualifiers: Atrial fibrillation type: paroxysmal Qualified Code(s): I48.0 - Paroxysmal atrial fibrillation (3) Atrial flutter with rapid ventricular response Code(s): I48.92 - UNSPECIFIED ATRIAL FLUTTER (4) Hypercholesterolemia Code(s): E78.00 - PURE HYPERCHOLESTEROLEMIA, UNSPECIFIED (5) Intermittent palpitations Code(s): R00.2 - PALPITATIONS (6) Tachycardia induced cardiomyopathy Code(s): R00.0 - TACHYCARDIA, UNSPECIFIED; I43 - CARDIOMYOPATHY IN DISEASES CLASSIFIED ELSEWHERE Assessment/Plan Echo: 05/29/2018 Normal LV size with mild decreased LV fxn, normal RV size and fxn, mild MR, TR RVSP 23 mmHg, c/w previous 01/07/2018 LVEF has improved RF ablation April 11, 2018 RF ablation for paroxysmal atrial fibrillation/atrial flutter, CTI lone created, 3-D mapping, ICE, PVI was achieved and confirmed, CTI line successfully created 1. Paroxysmal Atrial flutter/fibrillation with RVR back in sinus rhythm 2. Improving LV systolic dysfunction compatible with dilated cardiomyopathy ( tachycardia-induced) 3. Hyperlipidemia 4. Type 2 diabetes mellitus 5. History of psoriasis PLAN: 1. Continue Eliquis 5 mg twice a day given elevated risk score 2. Continue Toprol XL 50 mg daily and uptitrate as tolerated 3. Continue lisinopril 10 qd and Aldactone 25 qd as hemodynamics tolerates 5. Continue Zocor 40 qhs per fasting lipid panel 6. Check holter for recurrence freqency and refer back to Dr. Meek of cardiac EP for evaluation of recurrent arrhythmia 7. Thank you for consultative opportunity, as he is in SR, may be dced with f/u in office
--- NOTE | 2018-12-08 11:05 | PDOC ---
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 He does admit to drinking 3 cups of coffee everyday. He denies chest pain, dyspnea, near or true syncope, orthopnea, PND or LE edema. denies other precipitating factors. ROS Constitutional: no fevers or chills. HEENT: no headache or dizziness. No congestion. No visual/hearing disturbances. CVS: no cp or syncope. +palpitations Resp: no sob. No cough. Gastrointestinal: no abdominal pain, nausea or vomiting. MUSCULOSKELETAL: No joint pain and swelling. No neck or back pain. SKIN: no redness or skin changes, no discharge, no rash. No wounds. Hematologic: no easy bruising/bleeding. NEUROLOGIC: No headache, dizziness, LOC or altered mental status. No weakness, numbness or tingling. +anxiety. Allergic/Immunologic: no allergies All other systems reviewed and negative, or as documented in HPI. PE: General: Well appearing, awake and alert, NAD. HEENT: NCAT, PERRL, EOMI, clear conjunctiva, anicteric, moist mucus membranes, clear oropharynx, no oral lesions.. Neck: neck supple, FROM, no JVD. Resp: CTAB, normal and even respirations, no respiratory distress CVS: RRR, no murmurs, 2+ peripheral pulses throughout, no peripheral edema Abdomen: soft, NTND. Back: nontender, normal inspection and ROM MSK: no edema, HARRIS x4, ROM intact. No clubbing or cyanosis. normal bulk and tone. Extremities: no calf tenderness Neuro: alert, oriented appropriately; no focal neurologic deficits Skin: warm and well perfused, cap refill <2 sec, normal color 12/08/18 11:52 Past History - Past Medical History Allergies/Adverse Reactions: Allergies Allergy/AdvReac Type Severity Reaction Status Date / Time No Known Allergies Allergy Verified 12/08/18 10:49 Home Medications: Ambulatory Orders Apixaban [Eliquis -] 5 mg PO BID #60 tablet 01/08/18 Lisinopril [Prinivil] 10 mg PO DAILY #30 tablet 01/08/18 Metformin HCl [Glucophage] 1,000 mg PO BID 02/05/18 Simvastatin 40 mg PO HS 02/05/18 Anemia: No Asthma: No Cancer: No Cardiac Disorders: No CVA: No COPD: No CHF: No Dementia: No Diabetes: Yes GI Disorders: No Disorders: No HTN: Yes Hypercholesterolemia: Yes Liver Disease: No Seizures: No Thyroid Disease: No - Surgical History Abdominal Surgery: Yes (hernia repair) Appendectomy: No Cardiac Surgery: No Cholecystectomy: No Lung Surgery: No Neurologic Surgery: No Orthopedic Surgery: Yes (LEFT SHOULDER SURGERY) - Immunization History Td Vaccination: No TDAP Vaccination: No Immunization Up to Date: Yes - Suicide/Smoking/Psychosocial Hx Smoking History: Never smoked Have you smoked in the past 12 months: No Hx Alcohol Use: No Drug/Substance Use Hx: No Substance Use Type: None Hx Substance Use Treatment: No Cardiac Specific PMH - Complaint Specific PMHX Pacemaker: No *Physical Exam - Vital Signs Last Vital Signs Temp Pulse Resp BP Pulse Ox 97.4 F L 67 18 115/77 98 12/08/18 10:49 12/08/18 12:25 12/08/18 12:25 12/08/18 10:49 12/08/18 12:25 Moderate Sedation - Procedure Monitoring Vital Signs: Procedure Monitoring Vital Signs Temperature 97.4 F L 12/08/18 10:49 Pulse Rate 67 12/08/18 12:25 Respiratory Rate 18 12/08/18 12:25 Blood Pressure 115/77 12/08/18 10:49 O2 Sat by Pulse Oximetry (%) 98 12/08/18 12:25 ED Treatment Course - LABORATORY CBC & Chemistry Diagram: 12/08/18 11:09 12/08/18 11:09 - ADDITIONAL ORDERS Additional order review: Laboratory Results 12/08/18 11:09 Sodium 130 L Potassium 4.2 Chloride 97 L Carbon Dioxide 23 Anion Gap 9 BUN 15 Creatinine 0.7 Creat Clearance w eGFR > 60 Random Glucose 103 Calcium 9.0 Total Bilirubin 0.8 Direct Bilirubin 0.2 AST 17 ALT 30 Alkaline Phosphatase 91 Total Protein 7.3 Albumin 4.2 Triglycerides 142 Cholesterol 123 Total LDL Cholesterol 59 HDL Cholesterol 43 12/08/18 11:09 RBC 4.88 MCV 90.2 MCHC 35.9 RDW 13.3 MPV 7.6 D Neutrophils % 69.7 Lymphocytes % 19.3 D Monocytes % 8.7 Eosinophils % 1.5 Basophils % 0.8 - Medications Given in the ED: ED Medications Discontinued Medications Generic Name Dose Route Start Last Admin Trade Name Reji PRN Reason Stop Dose Admin Metoprolol Succinate 50 mg 12/08/18 11:00 12/08/18 11:27 Toprol Xl - PO 50 mg DAILY YUE Administration Medical Decision Making - Medical Decision Making 12/08/18 11:49 See HPI for details Vital signs reviewed, wnl. Prior notes reviewed, including admissions, discharges and consultations. laboratory results and imaging reviewed, basic labs and lytes wnl. Fasting lipid panel per request of cards, on statin already. panel wnl. sodium borderline 130, but not symptomatic. no indication to treat or as manifestation of sx. EKG normal sinus rhythm, no interval abnormalities, narrow QRS, ST and T wave segments and morphology normal. Nonspecific T wave abnormalities ED course: no cp or sob. +caffeine likely a precipitant as sympathomimetic. told to wean down. back in sinus rhythm, no complaints. Extra dose of toprol here, rate controlled and back to sinus rhythm on EKG. Follow up with Dr Blood in office as provided. Dispo: Pt informed of my clinical impression, treatment recommendations and disposition plan. All questions answered to patient's satisfaction and expressed understanding and comfort with this. Reasons for returning to the ED sooner discussed with the patient otherwise, follow up with primary care physician. At the time of discharge, the patient is alert, clinically improved, tolerating po and verbalizes understanding of instructions. Patient does not suffer from an acute life-threatening medical condition at this time she is safe for outpatient follow-up. 12/08/18 11:52 12/08/18 12:34 12/08/18 12:34 *DC/Admit/Observation/Transfer Diagnosis at time of Disposition: Palpitations - Discharge Dispostion Disposition: HOME Condition at time of disposition: Improved Decision to Admit order: No - Referrals Referrals: Juan A Hill MD [Primary Care Provider] - José Miguel Blood MD [Staff Physician] - - Patient Instructions Printed Discharge Instructions: DI for Arrhythmias, DI for Palpitations Additional Instructions: 1. Continue Eliquis 5 mg twice a day 2. Continue Toprol XL 50 mg daily 3. Continue lisinopril 10 daily and Aldactone 25 daily 5. Continue Zocor 40 qhs per fasting lipid panel 6. Check holter for recurrence frequency and refer back to Dr. Meek of cardiac EP for evaluation of recurrent arrhythmia follow up with Dr Blood in the office as outpatient. Print Language: TAJIK - Post Discharge Activity
[2018-12-08 11:31] LABS: EOS % 1.5 % (0-4.5); HEMATOCRIT 44.1 % (35.4-49); HEMOGLOBIN 15.8 GM/dL (11.7-16.9); MCH 32.4 pg (25.7-33.7); MEAN PLT VOLUME 7.6 fl (7.5-11.1); RBC 4.88 M/mm3 (4.00-5.60)
[2018-12-08 11:34] LABS: BASO % 0.8 % (0-2.0); LYMPH % 19.3 % (8-40); MCHC 35.9 g/dl (32.0-35.9); MEAN CELL VOLUME 90.2 fl (80-96); MONO % 8.7 % (3.8-10.2); NEUT % 69.7 % (42.8-82.8); PLATELET COUNT 138 K/MM3 (134-434); RDW 13.3 % (11.9-15.9); WHITE BLOOD COUNT 5.8 K/mm3 (4.0-10.0)
[2018-12-08 12:12] LABS: ALBUMIN 4.2 g/dl (3.4-5.0); ALK PHOS 91 U/L (45-117); ANION GAP 9 MMOL/L (8-16); BILIRUBIN,DIRECT 0.2 mg/dL (0.0-0.2); BILIRUBIN,TOTAL 0.8 mg/dL (0.2-1); BLOOD UREA NITROGEN 15 mg/dL (7-18); CHLORIDE 97 mmol/L (98-107); CHOLESTEROL 123 mg/dL (50-200); CO2 23 mmol/L (21-32); CREATININE 0.7 mg/dL (0.55-1.3); GLUCOSE,RANDOM 103 mg/dL (74-106); HDL CHOLESTEROL 43 mg/dL (40-60); POTASSIUM 4.2 mmol/L (3.5-5.1); SGOT/AST 17 U/L (15-37); SGPT/ALT 30 U/L (13-61); SODIUM 130 mmol/L (136-145); TOT PROT 7.3 g/dl (6.4-8.2); TRIGLYCERIDES 142 mg/dL (0-150)
[2018-12-08 12:25] VITALS: PULSE 67
--- NOTE | 2018-12-10 14:25 | EKG ---
Test Reason : Blood Pressure : / mmHG Vent. Rate : 067 BPM Atrial Rate : 067 BPM P-R Int : 158 ms QRS Dur : 108 ms QT Int : 370 ms P-R-T Axes : 025 039 039 degrees QTc Int : 390 ms NORMAL SINUS RHYTHM NONSPECIFIC T WAVE ABNORMALITY ABNORMAL ECG WHEN COMPARED WITH ECG OF 05-FEB-2018 11:19, NO SIGNIFICANT CHANGE WAS FOUND Confirmed by CARON JULIO MD ([id number]) on 12/10/2018 2:25:29 PM Referred By: Confirmed By:CARON JULIO MD
== END 2018-12-08 12:26 | disposition home or self-care (01) ==
LOC: JER 10:26
DX: R00.2 Palpitations (principal); I48.91 Unspecified atrial fibrillation; I48.92 Unspecified atrial flutter; Z79.01 Long term (current) use of anticoagulants; I10 Essential (primary) hypertension; E78.00 Pure hypercholesterolemia, unspecified; E11.9 Type 2 diabetes mellitus without complications; Z79.84 Long term (current) use of oral hypoglycemic drugs; Z98.890 Other specified postprocedural states
CPT/HCPCS: 36415; 80053; 80061; 80076; 83721; 85025; 93005; 93010; 99283-25

== ENCOUNTER 2019-04-07 05:03 | Day surgery (SDC) | payer OTHER ==
[2019-03-31 10:35] VITALS: BMI 26.6
--- NOTE | 2019-04-07 13:54 | HP ---
History & Physical Update - History History: No Change - Physical Physical: No Change - Assessment Assessment: No Change - Plan Plan: No Change (for repair of recurrent left inguinal hernia; r/b/t/a's d/w the patient in the office previously.)
[2019-04-07] MEDS ORDERED: SUCCINYLCHOLINE CHLORIDE 200 MG/10 ML VIAL ONE (14:27)
[2019-04-07] MEDS ORDERED: PROPOFOL 20 ML ONE (14:27)
[2019-04-07] MEDS ORDERED: DEXAMETHASONE SOD PHOSPHATE 4 MG/1 ML VIAL ONE (14:28)
[2019-04-07] MEDS ORDERED: SODIUM CHLORIDE 0.9% P/F 10 ML VIAL IJ ONE (14:28)
[2019-04-07] MEDS ORDERED: ceFAZolin SODIUM 1 GM VIAL ONE (14:28)
[2019-04-07] MEDS ORDERED: LIDOCAINE HCL/PF 2% SDV 5ML VIAL ONE (14:28)
[2019-04-07] MEDS ORDERED: SEVOFLURANE 250 ML BTL ONE (14:35)
[2019-04-07] MEDS ORDERED: BUPIVACAINE HCL/PF 0.5% (5MG/ML) 10 ML VIAL ONE (14:39)
[2019-04-07] MEDS ORDERED: LIDOCAINE HCL 1%, 10 MG/ML (20ML VIAL) ONE (14:39)
[2019-04-07] MEDS ORDERED: ceFAZolin SODIUM 1 GM VIAL IVPB ONE (14:46)
[2019-04-07] MEDS ORDERED: oxyCODONE HCL 5 MG TABLET PO PRN ×2 (14:49)
[2019-04-07] MEDS ORDERED: ONDANSETRON 4 MG/2 ML VIAL IVPUSH PRN (14:49)
[2019-04-07] MEDS ORDERED: ACETAMINOPHEN 1000 MG/100 ML VIAL (NON FORMULARY) IVPB ONE ×2 (14:50→17:10)
[2019-04-07] MEDS ORDERED: LIDOCAINE HCL 1%, 10 MG/ML (20ML VIAL) INF ONE ×2 (14:51)
[2019-04-07] MEDS ORDERED: BUPIVACAINE HCL/PF (5 MG/ML) 30 ML VIAL IJ ONE ×2 (14:51)
[2019-04-07] MEDS ORDERED: LACTATED RINGERS SOLUTION 1,000 ML IV SCH (15:00)
[2019-04-07] MEDS ORDERED: KETOROLAC TROMETHAMINE 30 MG/1 ML VIAL ONE (16:23)
[2019-04-07] MEDS ORDERED: BENZOIN TINCTURE SWABSTICK TP ONE (16:30)
[2019-04-07] MEDS ORDERED: BENZOIN/ALOE VERA/STORAX/TOLU 58 ML BOTTLE TP ONE (16:53)
[2019-04-07] MEDS ORDERED: ACETAMINOPHEN INJECTION 100 ML IVPB ONE (17:04)
--- NOTE | 2019-04-07 17:14 | OP ---
Operative Note - Note: Operative Date: 04/07/19 Pre-Operative Diagnosis: recurrent left inguinal hernia Operation: left hernia repair with mesh Post-Operative Diagnosis: Same as Pre-op Surgeon: Allan Wyatt Party Plan Sales Unit Sales Leader: Claudia Matamoros Anesthesiologist/CUSHION INSTALLER: Jl Dahl Anesthesia: General, Local Estimated Blood Loss (mls): 15 Fluid Volume Replaced (mls): 1,500 Operative Report Dictated: Yes
--- NOTE | 2019-04-07 17:15 | SURG ---
Surgery Director Of Development And Marketing Note Director Of Development And Marketing: Claudia Matamoros PA-C Date of Service: 04/07/19 Diagnosis: recurrent left inguinal hernia repair Procedure: left inguinal hernia repair with mesh I was present for the entirety of the operative procedure. For further detail, please refer to operative report. Visit type - Case Type Case Type: Scheduled - Emergency Emergency Visit: No - New patient This patient is new to me today: Yes Date on this admission: 04/07/19
[2019-04-07 19:37] VITALS: BP 115/79; PULSE 90; TEMP 97.9
--- NOTE | 2019-04-14 06:45 | OP ---
DATE OF OPERATION: 04/07/2019 PREOPERATIVE DIAGNOSIS: Recurrent left inguinal hernia. POSTOPERATIVE DIAGNOSIS: Recurrent left inguinal hernia. PROCEDURE: Repair of recurrent left inguinal hernia with mesh. SURGEON: Allan Wyatt MD SCHOOL PATROL: Claudia Matamoros PA-C ANESTHESIA: General. OPERATIVE FINDINGS: There was a recurrent left inguinal hernia which appeared to be indirect in nature. There was evidence of a previous hernia plug placement in the internal ring from previous hernia surgery that had migrated proximally allowing the recurrence of the indirect left inguinal hernia. The floor of the inguinal canal was markedly attenuated, as well, and the rest of the findings showed evidence of previous surgery in the left groin. DESCRIPTION OF PROCEDURE: The patient was placed on the operating table in the supine position, and after the induction of general anesthesia, the patients left groin was prepped with ChloraPrep and draped in sterile fashion. A time-out was taken, and a transverse left groin incision was mapped out, and the area infiltrated with 1% Xylocaine and 0.5% Marcaine in equal concentration. Incision was made with a scalpel and taken down through skin and subcutaneous tissue. Scarpas fascia was identified and divided using a scalpel. Next, the external oblique was identified using blunt and sharp dissection, and it was opened proximally and distally in the direction of its fibers and through the external ring distally. The cord structures were identified and mobilized at the level of the pubic tubercle, and a [place] drain placed around them for retraction and identification purposes. The previously noted findings were observed. The indirect sac, which was not opened, was reduced into the internal ring, and then, a piece of Parietex ProGrip Mesh was fashioned into the inguinal canal and anchored at the pubic tubercle, shelving edge, and conjoint tendon respectively with interrupted 2-0 Prolene. A keyhole was created for the cord structures and the tails of the mesh brought above the level of the internal ring, crossed, and anchored there with interrupted 2-0 Prolene. Hemostasis was checked for and noted to be good, and then, the wound was copiously irrigated with sterile saline. Again, hemostasis was verified, and then, the cord structures were returned to their normal anatomic position, and the external oblique fascia closed using continuous 2-0 Vicryl recreating the external ring. Scarpas fascia was reapproximated with an interrupted 2-0 Vicryl, the deep dermis with interrupted 3-0 Vicryl, and the skin edges with 4-0 Monocryl in a subcuticular continuous fashion. Steri-Strips, dry sterile dressings, and a Tegaderm were placed, and the procedure terminated at this point. The patient was aroused from general anesthesia and transferred to the post-anesthesia care unit in stable condition, awake and alert. ESTIMATED BLOOD LOSS: 15 mL. REPLACEMENTS: Crystalloid. DRAINS: None. SPECIMENS: None. I, Allan Wyatt, was physically present in the operating room from the time the patient was placed on the operating table until he was transferred to the post-anesthesia care unit in my accompaniment. MD RODRIGUEZ Weber/[id number] MTDD
== END 2019-04-07 19:20 | disposition home or self-care (01) ==
LOC: JASU-SURG 05:03
PROVIDERS: ATTEND Surgery
PROC: 0YU60JZ Supplement Left Inguinal Region with Synthetic Substitute, Open Approach (ICD-10-PCS; principal; 2019-04-07 13:30)
DX: K40.91 Unilateral inguinal hernia, without obstruction or gangrene, recurrent (principal)
CPT/HCPCS: 82962; 94760; J0131

== ENCOUNTER 2020-01-19 09:03 | Observation (INO) | payer OTHER ==
--- NOTE | 2020-01-19 10:57 | EKG ---
Test Reason : Blood Pressure : / mmHG Vent. Rate : 112 BPM Atrial Rate : 138 BPM P-R Int : 000 ms QRS Dur : 102 ms QT Int : 266 ms P-R-T Axes : 000 028 062 degrees QTc Int : 363 ms POOR DATA QUALITY, INTERPRETATION MAY BE ADVERSELY AFFECTED ATRIAL FIBRILLATION WITH RAPID VENTRICULAR RESPONSE WITH PREMATURE VENTRICULAR OR ABERRANTLY CONDUCTED COMPLEXES NONSPECIFIC T WAVE ABNORMALITY ABNORMAL ECG WHEN COMPARED WITH ECG OF 31-MAR-2019 10:02, ATRIAL FIBRILLATION HAS REPLACED SINUS RHYTHM VENT. RATE HAS INCREASED BY 43 BPM Confirmed by Cheo Guerrier MD ([id number]) on 01/19/2020 10:56:43 AM Referred By: DANIEL ROMAN Confirmed By:Cheo Guerrier MD
--- NOTE | 2020-01-19 11:27 | CON.CARD ---
Consult Consult Specialty:: cardiology Reason for Consultation:: development of AF-->cancellation of EGD. Hx ablation Rx of AF-->sinus rhythm 2018 - History of Present Illness Chief Complaint: Pt A&Ox3; no chest pain, dizziness, palpitatioins, SOB History of Present Illness: 60 yr old man (b. [place]) with PMHx AF-->ablation therapy at [facility] 2017, nonobstructive CAD by angiogram 2018, moderately reduced LVEF (non- ischemic, tachycardia-mediated cardiomyopathy), with dilated LV and LA, HTN, hyperlipidemia, now came to [facility] for EGD for abdominal pain when eating, found to be in AF with RVR. Pt had stopped several medications; he believes he last took metoprolol ER 100 mg yesterday, and had stopped apixaban after Saturday morning dose. He is also on lisinopril, sprionoolactone, and Metformin. Pt deneis feeling chest pain, palpitations, or dizziness today, but did feel mildly short of breath. Able to walk and do other exercise without symptoms. 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 - History Source History Provided By: Patient, Family Member (daughter (at bedside)), Medical Record Limitations to Obtaining History: No Limitations - Past Medical History Cardio/Vascular: Yes: AFIB, CHF (systoic (nonobstructive CAD)), HTN, Hyperlipdemia Gastrointestinal: Yes: Gastritis, GERD. No: GI Bleed Endocrine: Yes: Diabetes Mellitus - Past Surgical History Past Surgical History: Yes: Hernia Repair Additional Surgical History: ablation therapy for AF in 2018 - Alcohol/Substance Use Hx Alcohol Use: No - Smoking History Smoking history: Never smoked Have you smoked in the past 12 months: No Home Medications - Allergies Allergies/Adverse Reactions: Allergies Allergy/AdvReac Type Severity Reaction Status Date / Time No Known Allergies Allergy Verified 04/07/19 12:54 - Home Medications Home Medications: Ambulatory Orders Lisinopril [Prinivil] 10 mg PO DAILY #30 tablet 01/08/18 Metformin HCl [Glucophage] 1,000 mg PO BID 02/05/18 Simvastatin 40 mg PO DAILY 02/05/18 Apixaban [Eliquis -] 5 mg PO BID #60 tablet 04/07/19 Apremilast [Otezla] 30 mg PO BID 01/19/20 Metoprolol Succinate 100 mg PO DAILY 01/19/20 Spironolactone 25 mg PO DAILY 01/19/20 Family Medical History Family History: Denies Review of Systems - Review of Systems Constitutional: reports: No Symptoms Eyes: reports: No Symptoms HENT: reports: No Symptoms Neck: reports: No Symptoms Cardiovascular: reports: No Symptoms Respiratory: reports: No Symptoms Gastrointestinal: reports: Abdominal Pain. denies: Vomiting Blood Genitourinary: reports: No Symptoms Breasts: reports: No Symptoms Reported Musculoskeletal: reports: No Symptoms Integumentary: reports: No Symptoms Neurological: reports: No Symptoms Endocrine: reports: No Symptoms Hematology/Lymphatic: reports: No Symptoms Psychiatric: reports: No Symptoms - Risk Factors Known Risk Factors: Yes: Age, Gender, Hypercholesterolemia, Hypertension, Other (dilated cardiomyopathy, with moderately reduced LVEF on 12/2019 ECHO Non- obstuctive CAD). No: Smoking Vital Signs: Vital Signs Temperature 97.7 F 01/19/20 10:05 Pulse Rate 120 H 01/19/20 11:20 Respiratory Rate 17 01/19/20 11:20 Blood Pressure 113/79 01/19/20 11:20 O2 Sat by Pulse Oximetry (%) 95 01/19/20 11:20 Constitutional: Yes: Calm Eyes: Yes: WNL HENT: Yes: WNL Neck: Yes: WNL Respiratory: Yes: WNL Gastrointestinal: Yes: WNL Renal/: Yes: WNL Cardiovascular: Yes: Pulse Irregular JVD: No Carotid Bruit: No PMI: Non-Displaced Heart Sounds: Yes: S1, S2 Murmur: Yes: Systolic Murmur, Grade 1 Musculoskeletal: Yes: WNL Extremities: Yes: WNL Edema: No Peripheral Pulses WNL: Yes Integumentary: Yes: WNL Neurological: Yes: WNL ...Motor Strength: WNL Psychiatric: Yes: WNL - Other Data Echo: Report Reviewed Ejection Fraction %: LVEF < 40 % (Pt's private nude model reports LVEF 35-40% on cardiac cath 01/2018; 40% on ECHO 12/2019) Imaging - Results Chest X-ray: Image Reviewed EKG: Image Reviewed (NSR; periods of PAF, PSVT.) Problem List - Problems (1) Afib Assessment/Plan: Evidence of sinus rhythm, with frequent brief episodes of SVT, PAF. Restart metoprolol ER. Restart lisinopril and spironolactone. Restart apixaban if GI procedure is not going to be done at this time. F/u TSH. F/u TNI. I discussed pt with both his PMD (Dr. Hill) and nude model (Dr. Austin) . Once HR and BP are stable, he may be discharged from cardiac viewpoint and followed up as outpatient. He will be evaluated for optimal medication therapy and for the possibility of repeat ablation therapy. Code(s): I48.91 - UNSPECIFIED ATRIAL FIBRILLATION Qualifiers: Atrial fibrillation type: paroxysmal Qualified Code(s): I48.0 - Paroxysmal atrial fibrillation (2) Diabetes mellitus Assessment/Plan: F/u [id number] (>8 in 2018). Consider starting SGLT-2 inhibitor (DM; potential for ameliorating cardiac risks , including CHF). Code(s): E11.9 - TYPE 2 DIABETES MELLITUS WITHOUT COMPLICATIONS Qualifiers: Diabetes mellitus type: type 2 Diabetes mellitus fdc insulin use: without fdc use Diabetes mellitus complication status: without complication Qualified Code(s): E11.9 - Type 2 diabetes mellitus without complications (3) Dilated cardiomyopathy Assessment/Plan: Hx non-obstructive CAD. Cardiomyopathy thought tachycardia-mediated/non-ischemic. Moderately decreased LVEF (40%) on 12/2019 ECHO. Continue metoprolol ER, lisinopril, and spironolactone. F/u BUn/Cr electrolytes, daily weight, and Is and Os. Code(s): I42.0 - DILATED CARDIOMYOPATHY (4) Hypercholesterolemia Assessment/Plan: for lipid profile Code(s): E78.00 - PURE HYPERCHOLESTEROLEMIA, UNSPECIFIED (5) S/P radiofrequency ablation operation for arrhythmia Assessment/Plan: s/p ablation therapy 03/2018 for AF/AFlutter. may [id number] repeat procedure Code(s): Z98.890 - OTHER SPECIFIED POSTPROCEDURAL STATES; Z86.79 - PERSONAL HISTORY OF OTHER DISEASES OF THE CIRCULATORY SYSTEM (6) PSVT (paroxysmal supraventricular tachycardia) Code(s): I47.1 - SUPRAVENTRICULAR TACHYCARDIA
[2020-01-19 12:06] LABS: BLOOD UREA NITROGEN 8.2 mg/dL (7-18); CALCIUM 8.7 mg/dL (8.5-10.1); CREATININE 0.7 mg/dL (0.55-1.3); MAGNESIUM 2.1 mg/dL (1.8-2.4); POTASSIUM 4.2 mmol/L (3.5-5.1)
[2020-01-19] MEDS ORDERED: ACETAMINOPHEN 325 MG TABLET (FP) PO PRN (14:30)
[2020-01-19] MEDS ORDERED: LISINOPRIL 10 MG TABLET (FP) PO SCH (14:45)
--- NOTE | 2020-01-19 14:45 | HP ---
CHIEF COMPLAINT: Palpitations + Tachycardia PCP: PMD (Dr. Hill) and stamp analyst (Dr. Austin) HISTORY OF PRESENT ILLNESS: 60 y/o M, pmh of A-fib s/p Ablation in 2018 at [facility] nonobstructive CAD s/p Angio 2018, moderately reduced LVEF (dilated LV + LA), HTN, HLD, DM, presented to [facility] for EGD due to abdominal pain when eating, is found to have A- fib w/ RVR during the procedure. Pt reports that he had stopped all his meds, except the metoprolol 100 mg he took yesterday. He reports he had stopped his Eliquis on Saturday after his dose. Dr. Martin had seen pt and advised to restart all meds. He got in touch with pt's stamp analyst, Dr. Austin, who believes that it is unusual for A-fib to have returned and that this may be runs of SVTs instead. Pt is currently having runs of SVTs but otherwise is stable. Endoscopy was cancelled and is planned to be rescheduled at some other time. Denies f/c/n/v/d/sob/cp. Recent Travel: travelled to [place] in august PAST MEDICAL HISTORY: A-fib s/p Ablation in 2018 at [facility] nonobstructive CAD s/p Angio 2018 , moderately reduced LVEF (dilated LV + LA), HTN, HLD, DM PAST SURGICAL HISTORY: Social History: Smoking: denies Alcohol: Denies Drugs: Denies Allergies No Known Allergies Allergy (Verified 04/07/19 12:54) HOME MEDICATIONS: Home Medications Medication Instructions Recorded Lisinopril [Prinivil] 10 mg PO DAILY #30 tablet 01/08/18 Metformin HCl [Glucophage] 1,000 mg PO BID 02/05/18 Simvastatin 40 mg PO DAILY 02/05/18 Apixaban [Eliquis -] 5 mg PO BID #60 tablet 04/07/19 Apremilast [Otezla] 30 mg PO BID 01/19/20 Metoprolol Succinate 100 mg PO DAILY 01/19/20 Spironolactone 25 mg PO DAILY 01/19/20 REVIEW OF SYSTEMS CONSTITUTIONAL: Absent: fever, chills, diaphoresis, generalized weakness, HEENT: Absent: rhinorrhea, nasal congestion, throat pain, throat swelling CARDIOVASCULAR: Admits: palpitations, Absent: chest pain, syncope, irregular heart rate, RESPIRATORY: Absent: cough, shortness of breath, dyspnea with exertion, orthopnea, wheezing, GASTROINTESTINAL: Admits: abdominal pain, Absent: abdominal distension, nausea, vomiting, diarrhea, GENITOURINARY: Absent: dysuria, frequency, urgency, hesitancy, hematuria MUSCULOSKELETAL: Absent: myalgia, arthralgia SKIN: Admits: Psoriasis Absent: itching, pallor HEMATOLOGIC/IMMUNOLOGIC: Absent: easy bleeding, easy bruising, NEUROLOGIC: Absent: headache, focal weakness or paresthesias, dizziness PSYCHIATRIC: Absent: anxiety PHYSICAL EXAMINATION Vital Signs - 24 hr 01/19/20 01/19/20 01/19/20 09:33 10:05 10:20 Temperature 97.3 F L 97.7 F Pulse Rate 89 103 H 74 Respiratory 20 18 15 Rate Blood Pressure 138/75 117/80 116/80 O2 Sat by Pulse 98 100 100 Oximetry (%) GENERAL: Awake, alert, and fully oriented, in no acute distress. EYES: Pupils equal, round and reactive to light, extraocular movements intact EARS, NOSE, THROAT: Moist mucous membranes. NECK: Normal range of motion, supple without lymphadenopathy. LUNGS: Breath sounds equal, clear to auscultation bilaterally. No wheezes, and no crackles. HEART: Irregular rate and irregular rhythm, normal S1 and S2 without murmur, rub or gallop. ABDOMEN: Soft, nontender, not distended, normoactive bowel sounds, no guarding, no rebound, no masses. UPPER EXTREMITIES: 2+ pulses, warm, well-perfused. No peripheral edema. LOWER EXTREMITIES: 2+ pulses, warm, well-perfused. No peripheral edema. NEUROLOGICAL: Normal speech. Normal gait. SKIN: Warm, dry, normal turgor Laboratory Results - last 24 hr CBC,CMP Sodium 135 mmol/L (136-145) L 01/19/20 11:33 Potassium 4.2 mmol/L (3.5-5.1) 01/19/20 11:33 Chloride 103 mmol/L (98-107) 01/19/20 11:33 Carbon Dioxide 26 mmol/L (21-32) 01/19/20 11:33 Anion Gap 6 MMOL/L (8-16) L 01/19/20 11:33 BUN 8.2 mg/dL (7-18) 01/19/20 11:33 Creatinine 0.7 mg/dL (0.55-1.3) 01/19/20 11:33 Est GFR (CKD-EPI)AfAm 118.88 01/19/20 11:33 Est GFR (CKD-EPI)NonAf 102.57 01/19/20 11:33 Random Glucose 108 mg/dL (74-106) H 01/19/20 11:33 Calcium 8.7 mg/dL (8.5-10.1) 01/19/20 11:33 Magnesium 2.1 mg/dL (1.8-2.4) 01/19/20 11:33 Triglycerides 153 mg/dL (0-150) H 01/19/20 11:33 Cholesterol 103 mg/dL (50-200) 01/19/20 11:33 Total LDL Cholesterol 43 mg/dL (5-100) 01/19/20 11:33 HDL Cholesterol 38 mg/dL (40-60) L 01/19/20 11:33 TSH 0.77 uIU/ml (0.358-3.74) D 01/19/20 11:33 ASSESSMENT/PLAN: 60 y/o M, pmh of A-fib s/p Ablation in 2018 at [facility] nonobstructive CAD s/p Angio 2018, moderately reduced LVEF (dilated LV + LA), HTN, HLD, DM, presented to [facility] for EGD due to abdominal pain when eating, is found to have A- fib w/ RVR during the procedure is admitted for tachycardia+ Palpitation #Tachy+ palpitations 2/2 to A-fib w/ RVR vs SVT Pt's HR fluctating b/w 140s and 70s Unusual for ablation to have failed Admitted for tele Obs HD stable Will monitor overnight and d/c if stable Cont Metoprolol succinate 100 mg Cont Lopressor 5mg Q4H PRN Cont Eliquis 5 mg BID FOBT ordered before starting eliquis TFTs ordered r/p EKG for the am Trops ordered Discussed with Dr. Martin, once pt is stable can consider d/c. pt will likely need outpt f/u for another Ablation vs medical management No endoscopy at this admission #Abdominal pain likely 2/2 PUD Protonix 40 daily Mylanta once #Nasal congestion likely 2/2 to URI RSV, Flu, Urine legionella ordered #HTN Cont Lisinopril #HLD Simvastatin #Psorasis Otezla DVTppx Eliquis 5 BID FEN monitor lytes Sod/diabetic diet Dispo: monitor overnight, Lopressor as needed, f/u FOBT before resuming Eliquis Visit type - Emergency Visit Emergency Visit: Yes ED Registration Date: 01/19/20 Care time: The patient presented to the Emergency Department on the above date and was hospitalized for further evaluation of their emergent condition. - New Patient This patient is new to me today: Yes Date on this admission: 01/19/20 - Critical Care Critical Care patient: No ATTENDING PHYSICIAN STATEMENT I saw and evaluated the patient. I reviewed the resident's note and discussed the case with the resident. I agree with the resident's findings and plan as documented. SUBJECTIVE: OBJECTIVE: ASSESSMENT AND PLAN:
[2020-01-19] MEDS ORDERED: METOPROLOL TARTRATE 5 MG/5 ML VIAL IVPUSH PRN (14:52)
[2020-01-19] MEDS ORDERED: MAG HYDROX/AL HYDROX/SIMETH 30 ML UNIT-DOSE CUP PO ONE (15:41)
--- NOTE | 2020-01-19 17:01 | PN ---
Teaching Attending Note Name of Resident: Kee Carreon ATTENDING PHYSICIAN STATEMENT I saw and evaluated the patient. I reviewed the resident's note and discussed the case with the resident. I agree with the resident's findings and plan as documented. SUBJECTIVE: Patient seen and examined at bedside, was about to undergo scheduled EGD for evaluation of GERD sx, but was found to be in Afib w/ RVR, now rate controlled after given 100mg Toprol XL (not sure if he took it), admitted for further management of Afib. Objective: GENERAL: Awake, alert, and fully oriented, in no acute distress. Family at bedside EYES: Pupils equal, round and reactive to light, extra ocular movements intact EARS, NOSE, THROAT: Moist mucous membranes. NECK: Normal range of motion, supple without lymphadenopathy. No JVD. LUNGS: Breath sounds equal, clear to auscultation bilaterally. No wheezes, and no crackles. HEART: Irregularly irregular, no m/r/g appreciated. ABDOMEN: Soft, nontender, not distended, normoactive bowel sounds, no guarding, no rebound, no masses. UPPER EXTREMITIES: 2+ pulses, warm, well-perfused. No peripheral edema. LOWER EXTREMITIES: 2+ pulses, warm, well-perfused. No peripheral edema. NEUROLOGICAL: Normal speech. Normal gait. SKIN: diffuse psoriatic skin plaques throughout whole body, non that are ulcerated or expressing pus or fluctuance. Vital Signs - 24 hr 01/19/20 01/19/20 01/19/20 09:33 10:05 10:20 Temperature 97.3 F L 97.7 F Pulse Rate 89 103 H 74 Respiratory 20 18 15 Rate Blood Pressure 138/75 117/80 116/80 O2 Sat by Pulse 98 100 100 Oximetry (%) 01/19/20 01/19/20 01/19/20 10:35 10:50 11:05 Temperature Pulse Rate 88 80 112 H Respiratory 14 12 10 Rate Blood Pressure 119/83 100/82 117/83 O2 Sat by Pulse 99 96 99 Oximetry (%) 01/19/20 01/19/20 01/19/20 11:20 12:00 12:30 Temperature Pulse Rate 120 H 94 H 103 H Respiratory 17 16 14 Rate Blood Pressure 113/79 121/90 119/89 O2 Sat by Pulse 95 97 98 Oximetry (%) 01/19/20 01/19/20 01/19/20 13:00 13:30 14:00 Temperature Pulse Rate 79 68 91 H Respiratory 15 18 16 Rate Blood Pressure 119/74 129/77 111/82 O2 Sat by Pulse 99 99 96 Oximetry (%) 01/19/20 01/19/20 15:00 16:00 Temperature 98.1 F Pulse Rate 90 82 Respiratory 14 16 Rate Blood Pressure 113/72 130/86 O2 Sat by Pulse 99 100 Oximetry (%) Laboratory Results - last 24 hr 01/19/20 11:33 Sodium 135 L Potassium 4.2 Chloride 103 Carbon Dioxide 26 Anion Gap 6 L BUN 8.2 Creatinine 0.7 Est GFR (CKD-EPI)AfAm 118.88 Est GFR (CKD-EPI)NonAf 102.57 Random Glucose 108 H Calcium 8.7 Magnesium 2.1 Triglycerides 153 H Cholesterol 103 Total LDL Cholesterol 43 HDL Cholesterol 38 L TSH 0.77 D Home Medications Medication Instructions Recorded Lisinopril [Prinivil] 10 mg PO DAILY #30 tablet 01/08/18 Metformin HCl [Glucophage] 1,000 mg PO BID 02/05/18 Simvastatin 40 mg PO DAILY 02/05/18 Apixaban [Eliquis -] 5 mg PO BID #60 tablet 04/07/19 Apremilast [Otezla] 30 mg PO BID 01/19/20 Metoprolol Succinate 100 mg PO DAILY 01/19/20 Spironolactone 25 mg PO DAILY 01/19/20 Current Medications Generic Name Dose Route Start Last Admin Trade Name Freq PRN Reason Stop Dose Admin Acetaminophen 650 mg 01/19/20 14:30 Tylenol - PO Q4H PRN PAIN LEVEL 4 - 6 Apixaban 5 mg 01/19/20 22:00 Eliquis - PO BID YUE Atorvastatin Calcium 20 mg 01/19/20 22:00 Lipitor - PO HS YUE Insulin Aspart 1 vial 01/19/20 16:30 Novolog Vial Sliding Scale - SQ ACHS [facility] Protocol Lisinopril 10 mg 01/20/20 10:00 Prinivil PO DAILY YUE Metoprolol Succinate 100 mg 01/20/20 10:00 Toprol Xl - PO DAILY [facility] Metoprolol Tartrate 5 mg 01/19/20 14:52 Lopressor Injection - IVPUSH Q4H PRN HYPERTENSION Non-Formulary Medication 30 mg 01/19/20 22:00 Apremilast [Otezla] PO BID [facility] Pantoprazole Sodium 40 mg 01/19/20 15:45 Protonix - PO DAILY [facility] Spironolactone 25 mg 01/20/20 10:00 Aldactone - PO DAILY [facility] 60 year old M from [place], h/o Afib s/p Ablation in 2018 at [facility], non-obstructive CAD s/p Angio 2018, moderately reduced LVEF (dilated LV + LA), HTN, HLD, T2DM, presented to [facility] for EGD due to abdominal pain/GERD when eating , was found to be in an episode of Afib w/ RVR due to ?not taking his Toprol, pt. admitted for further management of his Afib. Afib w/ RVR now rate controlled after 100mg Toprol XL given cont. BB, IV Lopressor 5mg PRN for rate control or rate control may be tried with IV Cardizem pushes Send TSH/A1c/lipid panel, obtain repeat Echo, (overtly denies Etoh/drugs so no need for utox/etoh levels right now) Heparin gtt for now for AC as pt. needs to be re-evaluated for possible re- attempt at EGD Avoid NSAIDs Cardiology cs GERD/Abdominal pain when eating ?GERD/non-ulcer dyspepsia/gastric ulcer/PUD? Send stool H. pylori then start PPI Mylanta PRN GI consult Dr Welch to ask for plans for EGD (as pt. now rate controlled) URI symptoms admits to nasal stuffiness/congestion/cough w/ sputum Obtain CXR RSV, Flu, Urine legionella ordered HTN Cont Lisinopril HLD Simvastatin Diffuse plaque psoriasis On Otezla, cont. DVT ppx: Heparin Gtt for now Tele monitoring
[2020-01-19] MEDS ORDERED: HEPARIN NA (PORCINE) 5,000 UNITS/ML 1ML VIAL IVPUSH PRN ×2 (17:04)
[2020-01-19] MEDS ORDERED: HEPARIN INFUSION - 25,000 UNITS/500 ML INFUS.BAG IV SCH (17:15)
[2020-01-19] MEDS: PANTOPRAZOLE 40 MG TABLET PO SCH (18:00)
[2020-01-19] MEDS: INSULIN SLIDING SCALE (NOVOLOG) 1 VIAL SQ SCH ×2 (18:03→21:46)
[2020-01-19 18:19] VITALS: BMI 27.0
[2020-01-19] MEDS ORDERED: PATIENT'S OWN MEDICATION (NON-FORMULARY) (Apremilast [Otezla] 30 MG) PO SCH (22:00)
[2020-01-19] MEDS ORDERED: ATORVASTATIN CA 20 MG TABLET (FP) PO SCH (22:00)
[2020-01-19] MEDS ORDERED: APIXABAN 5 MG TABLET PO SCH ×3 (22:00)
[2020-01-20] MEDS: APIXABAN 5 MG TABLET PO SCH ×2 (05:57→09:02)
[2020-01-20] MEDS: INSULIN SLIDING SCALE (NOVOLOG) 1 VIAL SQ SCH ×2 (06:34→11:51)
[2020-01-20 06:39] LABS: BASO % 0.9 % (0-2.0); EOS % 2.2 % (0-4.5); HEMATOCRIT 41.4 % (35.4-49); HEMOGLOBIN 14.4 GM/dL (11.7-16.9); LYMPH % 21.3 % (8-40); MCH 31.9 pg (25.7-33.7); MCHC 34.9 g/dl (32.0-35.9); MEAN CELL VOLUME 91.5 fl (80-96); MEAN PLT VOLUME 7.8 fl (7.5-11.1); MONO % 8.2 % (3.8-10.2); NEUT % 67.4 % (42.8-82.8); PLATELET COUNT 137 K/MM3 (134-434); RBC 4.53 M/mm3 (4.00-5.60); RDW 13.6 % (11.9-15.9); WHITE BLOOD COUNT 4.8 K/mm3 (4.0-10.0)
[2020-01-20 07:23] LABS: ALBUMIN 3.6 g/dl (3.4-5.0); BILIRUBIN,TOTAL 0.9 mg/dL (0.2-1); BLOOD UREA NITROGEN 10.6 mg/dL (7-18); CALCIUM 8.2 mg/dL (8.5-10.1); CREATININE 0.7 mg/dL (0.55-1.3); MAGNESIUM 2.4 mg/dL (1.8-2.4); POTASSIUM 4.3 mmol/L (3.5-5.1); TOT PROT 6.5 g/dl (6.4-8.2)
[2020-01-20 07:32] LABS: INR 1.12 (0.83-1.09); PROTHROMBIN TIME (PATIENT) 13.2 SEC (9.7-13.0)
[2020-01-20 07:34] LABS: ACTIVATED PTT 32.9 SECONDS (25.2-36.5)
[2020-01-20] MEDS: PANTOPRAZOLE 40 MG TABLET PO SCH (09:02)
[2020-01-20] MEDS ORDERED: SPIRONOLACTONE 25 MG TABLET (FP) PO SCH (10:00)
[2020-01-20] MEDS ORDERED: LISINOPRIL 10 MG TABLET (FP) PO SCH (10:00)
--- NOTE | 2020-01-20 11:37 | PN ---
Progress Note, Physician History of Present Illness: 60 yr old man (umer Corrales) with PMHx AF-->ablation therapy at [facility] 2017, nonobstructive CAD by angiogram 2017, moderately reduced LVEF (non- ischemic, tachycardia-mediated cardiomyopathy), with dilated LV and LA, HTN, hyperlipidemia, now came to [facility] for EGD for abdominal pain when eating, found to be in AF with RVR. Pt had stopped several medications; he believes he last took metoprolol ER 100 mg yesterday, and had stopped apixaban after Saturday morning dose. He is also on lisinopril, sprionoolactone, and Metformin. Pt deneis feeling chest pain, palpitations, or dizziness today, but did feel mildly short of breath. Able to walk and do other exercise without symptoms. 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 - Current Medication List Current Medications: Active Medications Acetaminophen (Tylenol -) 650 mg PO Q4H PRN PRN Reason: PAIN LEVEL 4 - 6 Apixaban (Eliquis -) 5 mg PO BID [facility] Last Admin: 01/20/20 09:02 Dose: Not Given Atorvastatin Calcium (Lipitor -) 20 mg PO HS [facility] Last Admin: 01/19/20 21:46 Dose: 20 mg Insulin Aspart (Novolog Vial Sliding Scale -) 1 vial SQ ACHS [facility]; Protocol Last Admin: 01/20/20 06:34 Dose: Not Given Lisinopril (Prinivil) 10 mg PO DAILY [facility] Last Admin: 01/20/20 09:02 Dose: 10 mg Metoprolol Succinate (Toprol Xl -) 100 mg PO DAILY [facility] Last Admin: 01/20/20 09:02 Dose: 100 mg Metoprolol Tartrate (Lopressor Injection -) 5 mg IVPUSH Q4H PRN PRN Reason: HYPERTENSION Non-Formulary Medication (Apremilast [Otezla]) 30 mg PO BID [facility] Pantoprazole Sodium (Protonix -) 40 mg PO DAILY [facility] Last Admin: 01/20/20 09:02 Dose: 40 mg Spironolactone (Aldactone -) 25 mg PO DAILY [facility] Last Admin: 01/20/20 09:02 Dose: 25 mg - Objective Vital Signs: Vital Signs Temperature 98.3 F 01/20/20 08:47 Pulse Rate 76 01/20/20 08:47 Respiratory Rate 16 01/20/20 08:47 Blood Pressure 139/83 01/20/20 08:47 O2 Sat by Pulse Oximetry (%) 96 01/20/20 06:00 Eyes: Yes: WNL, Conjunctiva Clear, EOM Intact HENT: Yes: WNL, Atraumatic, Normocephalic Neck: Yes: WNL, Supple, Trachea Midline Cardiovascular: Yes: WNL, Regular Rate and Rhythm Respiratory: Yes: WNL, Regular, CTA Bilaterally Gastrointestinal: Yes: WNL, Normal Bowel Sounds Genitourinary: Yes: WNL Musculoskeletal: Yes: WNL Extremities: Yes: WNL Edema: No Integumentary: Yes: WNL Neurological: Yes: WNL, Alert, Oriented ...Motor Strength: WNL Psychiatric: Yes: WNL Labs: CBC, BMP 01/20/20 06:12 01/20/20 06:12 INR, PTT INR 1.12 (0.83-1.09) H 01/20/20 06:12 Assessment/Plan - Problems (1) Afib Assessment/Plan: Evidence of sinus rhythm, with frequent brief episodes of SVT, PAF. Restart metoprolol ER. Restart lisinopril and spironolactone. Restart apixaban if GI procedure is not going to be done at this time. F/u TSH. F/u TNI. I discussed pt with both his PMD (Dr. Hill) and inspector packager (Dr. Austin) . Once HR and BP are stable, he may be discharged from cardiac viewpoint and followed up as outpatient. He will be evaluated for optimal medication therapy and for the possibility of repeat ablation therapy. Code(s): I48.91 - UNSPECIFIED ATRIAL FIBRILLATION Qualifiers: Atrial fibrillation type: paroxysmal Qualified Code(s): I48.0 - Paroxysmal atrial fibrillation (2) Diabetes mellitus Assessment/Plan: F/u CNHCF1g (>8 in 2018). Consider starting SGLT-2 inhibitor (DM; potential for ameliorating cardiac risks , including CHF). Code(s): E11.9 - TYPE 2 DIABETES MELLITUS WITHOUT COMPLICATIONS Qualifiers: Diabetes mellitus type: type 2 Diabetes mellitus [facility] insulin use: without [facility] use Diabetes mellitus complication status: without complication Qualified Code(s): E11.9 - Type 2 diabetes mellitus without complications (3) Dilated cardiomyopathy Assessment/Plan: Hx non-obstructive CAD. Cardiomyopathy thought tachycardia-mediated/non-ischemic. Moderately decreased LVEF (40%) on 12/2019 ECHO. Continue metoprolol ER, lisinopril, and spironolactone. F/u BUn/Cr electrolytes, daily weight, and Is and Os. Code(s): I42.0 - DILATED CARDIOMYOPATHY (4) Hypercholesterolemia Assessment/Plan: for lipid profile Code(s): E78.00 - PURE HYPERCHOLESTEROLEMIA, UNSPECIFIED (5) S/P radiofrequency ablation operation for arrhythmia Assessment/Plan: s/p ablation therapy 03/2018 for AF/AFlutter. may [id number] repeat procedure Code(s): Z98.890 - OTHER SPECIFIED POSTPROCEDURAL STATES; Z86.79 - PERSONAL HISTORY OF OTHER DISEASES OF THE CIRCULATORY SYSTEM (6) PSVT (paroxysmal supraventricular tachycardia) Code(s): I47.1 - SUPRAVENTRICULAR TACHYCARDIA
--- NOTE | 2020-01-20 13:43 | ECHO ---
Version: 1 Name: BRANDI GODOY Exam: Adult Echocardiogram Study Date: 01/20/2020, 9:30 AM Age: 60 Years MMode/2D Measurements & Calculations IVSd: 1.02 cm LVIDs: 3.5 cm LVIDd: 5.2 cm LVPWd: 1.03 cm LAV (MOD-bp): 66.0 ml ACS: 1.94 cm Ao root diam: 3.3 cm LVOT diam: 2.03 cm LA dimension: 4.5 cm Doppler Measurements & Calculations MV E max flavio: 64.2 cm/sec Med E/e': 9.7 MV A max flavio: 60.2 cm/sec Med Peak E' Flavio: 6.6 cm/sec MV E/A: 1.07 Lat E/e': 8.3 Lat Peak E' Flavio: 7.7 cm/sec Ao max P.2 mmHg JAGJIT(I,D): 1.88 cm Ao mean P.0 mmHg LV V1 mean: 41.3 cm/sec Ao V2 max: 114.0 cm/sec LV V1 mean P.80 mmHg PI end-d flavio: 90.9 cm/sec TR max flavio: 198.2 cm/sec TR max P.9 mmHg Procedure A complete two-dimensional transthoracic echocardiogram was performed (2D, M-mode, Doppler and color flow Doppler). The patient was in an abnormal rhythm during the exam. Left Ventricle The left ventricle is normal in size. Left ventricular systolic function is low normal. Ejection Fra ction = 50%. Right Ventricle The right ventricle is normal size. The right ventricular systolic function is mildly reduced. Atria The left atrium is moderately dilated. Right atrial size is normal. Mitral Valve The mitral valve is normal in structure and function. Tricuspid Valve The tricuspid valve is normal in structure and function. There is trace tricuspid regurgitation. The re was insufficient TR detected to calculate RV systolic pressure. Aortic Valve There is mild aortic sclerosis.;. No hemodynamically significant valvular aortic stenosis. No aortic regurgitation is present. Pulmonic Valve The pulmonic valve is normal in structure and function. Great Vessels The aortic root is normal size. Pericardium/Pleura There is no pericardial effusion. Summary Statements The patient was in an abnormal rhythm during the exam. The left ventricle is normal in size. Left ventricular systolic function is low normal. The left atrium is moderately dilated. The right ventricle is normal size. The right ventricular systolic function is mildly reduced. Guillermo Aponte 01/20/2020, 1:42 PM Ordering Physician: Laura Del Rio Referring Physician: LAURA DEL RIO Performed By: Kaye Carranza
--- NOTE | 2020-01-20 13:48 | PN ---
Teaching Attending Note Name of Resident: Kee Carreon ATTENDING PHYSICIAN STATEMENT I saw and evaluated the patient. I reviewed the resident's note and discussed the case with the resident. I agree with the resident's findings and plan as documented. SUBJECTIVE: Feels well - no CP/palpitations/SOB. No lightheadedness/dizziness. OBJECTIVE: Afebrile, hemodynamically stable. Last Vital Signs Temp Pulse Resp BP Pulse Ox 98.3 F 76 16 139/83 96 01/20/20 08:47 01/20/20 08:47 01/20/20 08:47 01/20/20 08:47 01/20/20 06:00 HEENT - Atraumatic, Normocephalic. Heart - S1, S2, irregular Lungs - clear to auscultation Abdomen - Soft, non-tender. Bowel Sounds normal. Extremities - no edema, no calf tenderness. Laboratory Results - last 24 hr 01/19/20 01/19/20 01/19/20 16:45 16:45 18:02 WBC RBC Hgb Hct MCV MCH MCHC RDW Plt Count MPV Absolute Neuts (auto) Neutrophils % Lymphocytes % Monocytes % Eosinophils % Basophils % Nucleated RBC % PT with INR INR PTT (Actin FS) Sodium Potassium Chloride Carbon Dioxide Anion Gap BUN Creatinine Est GFR (CKD-EPI)AfAm Est GFR (CKD-EPI)NonAf POC Glucometer 141 Random Glucose Calcium Magnesium Total Bilirubin AST ALT Alkaline Phosphatase Troponin I < 0.02 Total Protein Albumin Free T4 1.01 Stool Occult Blood Influenza A (Rapid) Influenza B (Rapid) RSV Rapid 01/19/20 01/19/20 01/19/20 21:44 22:00 22:00 WBC RBC Hgb Hct MCV MCH MCHC RDW Plt Count MPV Absolute Neuts (auto) Neutrophils % Lymphocytes % Monocytes % Eosinophils % Basophils % Nucleated RBC % PT with INR INR PTT (Actin FS) Sodium Potassium Chloride Carbon Dioxide Anion Gap BUN Creatinine Est GFR (CKD-EPI)AfAm Est GFR (CKD-EPI)NonAf POC Glucometer 140 Random Glucose Calcium Magnesium Total Bilirubin AST ALT Alkaline Phosphatase Troponin I Total Protein Albumin Free T4 Stool Occult Blood Influenza A (Rapid) Negative Influenza B (Rapid) Negative RSV Rapid Negative 01/20/20 01/20/20 01/20/20 03:45 05:57 06:12 WBC 4.8 RBC 4.53 Hgb 14.4 Hct 41.4 MCV 91.5 MCH 31.9 MCHC 34.9 RDW 13.6 Plt Count 137 MPV 7.8 Absolute Neuts (auto) 3.2 Neutrophils % 67.4 Lymphocytes % 21.3 Monocytes % 8.2 Eosinophils % 2.2 Basophils % 0.9 Nucleated RBC % 0 PT with INR INR PTT (Actin FS) Sodium Potassium Chloride Carbon Dioxide Anion Gap BUN Creatinine Est GFR (CKD-EPI)AfAm Est GFR (CKD-EPI)NonAf POC Glucometer 129 Random Glucose Calcium Magnesium Total Bilirubin AST ALT Alkaline Phosphatase Troponin I Total Protein Albumin Free T4 Stool Occult Blood Negative Influenza A (Rapid) Influenza B (Rapid) RSV Rapid 01/20/20 01/20/20 01/20/20 06:12 06:12 06:12 WBC RBC Hgb Hct MCV MCH MCHC RDW Plt Count MPV Absolute Neuts (auto) Neutrophils % Lymphocytes % Monocytes % Eosinophils % Basophils % Nucleated RBC % PT with INR 13.20 H INR 1.12 H PTT (Actin FS) 32.9 Sodium 133 L Potassium 4.3 Chloride 102 Carbon Dioxide 23 Anion Gap 8 BUN 10.6 Creatinine 0.7 Est GFR (CKD-EPI)AfAm 118.88 Est GFR (CKD-EPI)NonAf 102.57 POC Glucometer Random Glucose 134 H Calcium 8.2 L Magnesium 2.4 Total Bilirubin 0.9 AST 18 ALT 32 Alkaline Phosphatase 78 Troponin I < 0.02 Total Protein 6.5 Albumin 3.6 Free T4 Stool Occult Blood Influenza A (Rapid) Influenza B (Rapid) RSV Rapid 01/20/20 11:48 WBC RBC Hgb Hct MCV MCH MCHC RDW Plt Count MPV Absolute Neuts (auto) Neutrophils % Lymphocytes % Monocytes % Eosinophils % Basophils % Nucleated RBC % PT with INR INR PTT (Actin FS) Sodium Potassium Chloride Carbon Dioxide Anion Gap BUN Creatinine Est GFR (CKD-EPI)AfAm Est GFR (CKD-EPI)NonAf POC Glucometer 154 Random Glucose Calcium Magnesium Total Bilirubin AST ALT Alkaline Phosphatase Troponin I Total Protein Albumin Free T4 Stool Occult Blood Influenza A (Rapid) Influenza B (Rapid) RSV Rapid Current Medications Generic Name Dose Route Start Last Admin Trade Name Freq PRN Reason Stop Dose Admin Acetaminophen 650 mg 01/19/20 14:30 Tylenol - PO Q4H PRN PAIN LEVEL 4 - 6 Apixaban 5 mg 01/20/20 06:00 01/20/20 09:02 Eliquis - PO Not Given BID YUE Atorvastatin Calcium 20 mg 01/19/20 22:00 01/19/20 21:46 Lipitor - PO 20 mg HS YUE Administration Insulin Aspart 1 vial 01/19/20 16:30 01/20/20 11:51 Novolog Vial Sliding Scale - SQ 2 units ACHS YUE Administration Protocol Lisinopril 10 mg 01/20/20 10:00 01/20/20 09:02 Prinivil PO 10 mg DAILY YUE Administration Metoprolol Succinate 100 mg 01/20/20 10:00 01/20/20 09:02 Toprol Xl - PO 100 mg DAILY YUE Administration Metoprolol Tartrate 5 mg 01/19/20 14:52 Lopressor Injection - IVPUSH Q4H PRN HYPERTENSION Non-Formulary Medication 30 mg 01/19/20 22:00 Apremilast [Otezla] PO BID [facility] Pantoprazole Sodium 40 mg 01/19/20 15:45 01/20/20 09:02 Protonix - PO 40 mg DAILY YUE Administration Spironolactone 25 mg 01/20/20 10:00 01/20/20 09:02 Aldactone - PO 25 mg DAILY YUE Administration Home Medications Medication Instructions Recorded Lisinopril [Prinivil] 10 mg PO DAILY #30 tablet 01/08/18 Metformin HCl [Glucophage] 1,000 mg PO BID 02/05/18 Simvastatin 40 mg PO DAILY 02/05/18 Apixaban [Eliquis -] 5 mg PO BID #60 tablet 04/07/19 Apremilast [Otezla] 30 mg PO BID 01/19/20 Metoprolol Succinate 100 mg PO DAILY 01/19/20 Spironolactone 25 mg PO DAILY 01/19/20 ASSESSMENT/PLAN 60 year old male with history of Atrial fibrillation s/p Ablation 2018 at [facility], CAD s/p PCI 2018, Chronic Systolic CHF, HTN, HLD, DM 2, found to have RVR while being prepped for EGD. 1. Atrial Fibrillation with RVR Currently rate controlled on resuming regular home dose Toprol XL 100mg Resumed on Eliquis. Evaluated by Cardio - for outpatient follow up for eval for possible repeat ablation. 2. HTN - Continue Lisinopril, Metoprolol, Spironolactone. 3. HLD - continue Simvastatin 4. DM 2 - Metformin held. Novolog sliding scale. 5. GERD - further management as out-patient by GI for rescheduling of EGD. 6. Plaque Psoriasis - on Otezia. 7. Chronic Systolic CHF sec to non-occlusive CAD - stable. No evidence of decompensation. Continue LA-I, Spironolactone. Medically optimized for discharge after results of repeat Echo if no new abnormalities.
[2020-01-20 14:27] VITALS: BP 104/61; PULSE 71; TEMP 98
--- NOTE | 2020-01-20 16:33 | DS ---
Physical Exam: SUBJECTIVE: Patient seen and examined. Asymptomatic and afebrile. No further c/o or issues. Denies f/c/n/v/d/sob OBJECTIVE: Vital Signs Period Temp Pulse Resp BP Sys/Madsen Pulse Ox Last 24 Hr 97.3 F-98.3 F 59-118 13-20 95-139/54-86 96-98 PHYSICAL EXAM GENERAL: Awake, alert, and fully oriented, in no acute distress. EYES: Pupils equal, round and reactive to light, extraocular movements intact EARS, NOSE, THROAT: Moist mucous membranes. NECK: Normal range of motion, supple without lymphadenopathy. LUNGS: Breath sounds equal, clear to auscultation bilaterally. No wheezes, and no crackles. HEART: Irregular rate and irregular rhythm, normal S1 and S2 without murmur, rub or gallop. ABDOMEN: Soft, nontender, not distended, normoactive bowel sounds, no guarding, no rebound, no masses. UPPER EXTREMITIES: 2+ pulses, warm, well-perfused. No peripheral edema. LOWER EXTREMITIES: 2+ pulses, warm, well-perfused. No peripheral edema. NEUROLOGICAL: Normal speech. Normal gait. SKIN: Warm, dry, normal turgor Laboratory Results - last 24 hr CBC,CMP WBC 4.8 K/mm3 (4.0-10.0) 01/20/20 06:12 RBC 4.53 M/mm3 (4.00-5.60) 01/20/20 06:12 Hgb 14.4 GM/dL (11.7-16.9) 01/20/20 06:12 Hct 41.4 % (35.4-49) 01/20/20 06:12 MCV 91.5 fl (80-96) 01/20/20 06:12 MCH 31.9 pg (25.7-33.7) 01/20/20 06:12 MCHC 34.9 g/dl (32.0-35.9) 01/20/20 06:12 RDW 13.6 % (11.9-15.9) 01/20/20 06:12 Plt Count 137 K/MM3 (134-434) 01/20/20 06:12 MPV 7.8 fl (7.5-11.1) 01/20/20 06:12 Absolute Neuts (auto) 3.2 K/mm3 (1.5-8.0) 01/20/20 06:12 Neutrophils % 67.4 % (42.8-82.8) 01/20/20 06:12 Lymphocytes % 21.3 % (8-40) 01/20/20 06:12 Monocytes % 8.2 % (3.8-10.2) 01/20/20 06:12 Eosinophils % 2.2 % (0-4.5) 01/20/20 06:12 Basophils % 0.9 % (0-2.0) 01/20/20 06:12 Nucleated RBC % 0 % (0-0) 01/20/20 06:12 Sodium 133 mmol/L (136-145) L 01/20/20 06:12 Potassium 4.3 mmol/L (3.5-5.1) 01/20/20 06:12 Chloride 102 mmol/L (98-107) 01/20/20 06:12 Carbon Dioxide 23 mmol/L (21-32) 01/20/20 06:12 Anion Gap 8 MMOL/L (8-16) 01/20/20 06:12 BUN 10.6 mg/dL (7-18) 01/20/20 06:12 Creatinine 0.7 mg/dL (0.55-1.3) 01/20/20 06:12 Est GFR (CKD-EPI)AfAm 118.88 01/20/20 06:12 Est GFR (CKD-EPI)NonAf 102.57 01/20/20 06:12 POC Glucometer 154 UNITS (80-120) 01/20/20 11:48 Random Glucose 134 mg/dL (74-106) H 01/20/20 06:12 Calcium 8.2 mg/dL (8.5-10.1) L 01/20/20 06:12 Magnesium 2.4 mg/dL (1.8-2.4) 01/20/20 06:12 Total Bilirubin 0.9 mg/dL (0.2-1) 01/20/20 06:12 AST 18 U/L (15-37) 01/20/20 06:12 ALT 32 U/L (13-61) 01/20/20 06:12 Alkaline Phosphatase 78 U/L (45-117) 01/20/20 06:12 Troponin I < 0.02 ng/ml (0.00-0.05) 01/20/20 06:12 Total Protein 6.5 g/dl (6.4-8.2) 01/20/20 06:12 Albumin 3.6 g/dl (3.4-5.0) 01/20/20 06:12 Triglycerides 153 mg/dL (0-150) H 01/19/20 11:33 Cholesterol 103 mg/dL (50-200) 01/19/20 11:33 Total LDL Cholesterol 43 mg/dL (5-100) 01/19/20 11:33 HDL Cholesterol 38 mg/dL (40-60) L 01/19/20 11:33 TSH 0.77 uIU/ml (0.358-3.74) D 01/19/20 11:33 Free T4 1.01 ng/dl (0.76-1.16) 01/19/20 16:45 Home Medications Medication Instructions Recorded Lisinopril [Prinivil] 10 mg PO DAILY #30 tablet 01/08/18 Metformin HCl [Glucophage] 1,000 mg PO BID 02/05/18 Simvastatin 40 mg PO DAILY 02/05/18 Apixaban [Eliquis -] 5 mg PO BID #60 tablet 04/07/19 Apremilast [Otezla] 30 mg PO BID 01/19/20 Metoprolol Succinate 100 mg PO DAILY 01/19/20 Spironolactone 25 mg PO DAILY 01/19/20 Mag Hydrox/Al Hydrox/Simeth 30 ml PO DAILY PRN #30 cup 01/20/20 [Mylanta *Suspension*] Pantoprazole Sodium [Protonix -] 40 mg PO DAILY #30 tablet.ec 01/20/20 HOSPITAL COURSE: Date of Admission:01/19/20 60 y/o M, pmh of A-fib s/p Ablation in 2018 at [facility] nonobstructive CAD s/p Angio 2018, moderately reduced LVEF (dilated LV + LA), HTN, HLD, DM, presented to [facility] for EGD due to abdominal pain when eating, is found to have A- fib w/ RVR during the procedure is admitted for tachycardia+ Palpitation w/ Pt's HR fluctating b/w 140s and 70s. Dr. Martin was consulted and advised to restart all meds. He got in touch with pt's bakery team leader, Dr. Austin, who believes that it is unusual for A-fib to have returned and that this may be runs of SVTs instead. Endoscopy was cancelled and is planned to be rescheduled at some other time. Pt was monitored overnight and was found to have a short SVT run of 13 beats which resolved and pt was asymptomatic since. Pt was given mylanta and protonix for his indigestion. Dr. Martin discussed pt with both his PMD (Dr. Hill) and bakery team leader (Dr. Austin). He will be evaluated for optimal medication therapy and for the possibility of repeat ablation therapy. Pt was stable and discharged on his home meds, including Metoprolol succinate 100 mg and Eliquis 5 mg BID. Also given mylanta and protonix for indigestion. Referral for Dr. Austin, Dr. elliott and PCP given. Rate controlled EKG: Sinus rhythm with frequent PACs, Prolonged QT, QTc 478, ECHO 01/20: LA moderately dilated, RV systolic fxn mildly reduced Ejection Fraction %: LVEF < 40 % (Pt's private bakery team leader reports LVEF 35-40% on cardiac cath 01/2018; 40% on ECHO 12/2019) Date of Discharge: 01/20/20 Minutes to complete discharge: 40 Discharge Summary Problems reviewed: Yes Reason For Visit: ATRIAL BIBRILLATION Condition: Improved - Instructions Diet, Activity, Other Instructions: You were admitted to the hospital for abnormal heart rate and rhythm during your scheduled endoscopy procedure. While you were in the hospital, we evaluated you with lab work, blood work, imaging including an Echocardiogram of your heart, which did not show any concerning issues. We found that your symptoms were caused by your Atrial Fibrillation. We treated you with medications and your symptoms improved. You will need to follow up with Gastroenterology to reschedule your Endoscopy at another time. You will also need to follow up with Hiral Mora within 1 week, for further management of your Atrial fibrillation, which may include another ablation procedure. We have also added new medications, please take the following medications for relief of your stomach pain: Mylanta 30 ml once daily Protonix 40 mg daily Please take all your medications as prescribed. Please follow up with Hiral Mora within 1 week. Please follow up with Dr. Elliott within 1 week. Return to the emergency room, if you experience worsening of your symptoms, chest pain, abdominal pain or any worsening of your condition. Referrals: Juan A Hill MD [Staff Physician] - 1 Week Zeeshan Elliott DO [Staff Physician] - 1 Week Hiral Austin MD [Non Staff, Medical] - 1 Week Disposition: HOME - Home Medications Comprehensive Discharge Medication List: Ambulatory Orders Lisinopril [Prinivil] 10 mg PO DAILY #30 tablet 01/08/18 Metformin HCl [Glucophage] 1,000 mg PO BID 02/05/18 Simvastatin 40 mg PO DAILY 02/05/18 Apixaban [Eliquis -] 5 mg PO BID #60 tablet 04/07/19 Apremilast [Otezla] 30 mg PO BID 01/19/20 Metoprolol Succinate 100 mg PO DAILY 01/19/20 Spironolactone 25 mg PO DAILY 01/19/20 Mag Hydrox/Al Hydrox/Simeth [Mylanta *Suspension*] 30 ml PO DAILY PRN #30 cup 01/20/20 Pantoprazole Sodium [Protonix -] 40 mg PO DAILY #30 tablet.ec 01/20/20 This patient is new to me today: Yes Date on this admission: 01/27/20 Emergency Visit: Yes ED Registration Date: 01/19/20 Care time: The patient presented to the Emergency Department on the above date and was hospitalized for further evaluation of their emergent condition. Critical Care patient: No - Discharge Referral Referred to [facility] No ATTENDING PHYSICIAN STATEMENT I saw and evaluated the patient. I reviewed the resident's note and discussed the case with the resident. I agree with the resident's findings and plan as documented. SUBJECTIVE: OBJECTIVE: ASSESSMENT AND PLAN:
--- NOTE | 2020-01-20 16:36 | EKG ---
Test Reason : Blood Pressure : / mmHG Vent. Rate : 087 BPM Atrial Rate : 133 BPM P-R Int : 176 ms QRS Dur : 108 ms QT Int : 398 ms P-R-T Axes : 064 046 073 degrees QTc Int : 478 ms SINUS RHYTHM WITH FREQUENT PREMATURE ATRIAL COMPLEXES NONSPECIFIC T WAVE ABNORMALITY PROLONGED QT ABNORMAL ECG Confirmed by MD TYREE, DARINEL ([id number]) on 01/20/2020 4:36:25 PM Referred By: Olesya GRAHAM Confirmed By:DARINEL CLEMENTS MD
== END 2020-01-20 16:23 | disposition home or self-care (01) ==
LOC: JASU-ENDO 09:03 → JERBED 16:47 → J4S 17:52
PROC: 3E013VG Introduction of Insulin into Subcutaneous Tissue, Percutaneous Approach (ICD-10-PCS; 2020-01-19)
PROC: 0DJ08ZZ Inspection of Upper Intestinal Tract, Via Natural or Artificial Opening Endoscopic (ICD-10-PCS; principal; 2020-01-19 09:45)
DX: I48.0 Paroxysmal atrial fibrillation (principal); Z53.09 Procedure and treatment not carried out because of other contraindication; I10 Essential (primary) hypertension; I42.0 Dilated cardiomyopathy; I47.1 Supraventricular tachycardia; E11.9 Type 2 diabetes mellitus without complications; E78.5 Hyperlipidemia, unspecified; I50.22 Chronic systolic (congestive) heart failure; R09.81 Nasal congestion; L40.9 Psoriasis, unspecified; Z79.84 Long term (current) use of oral hypoglycemic drugs; Z98.890 Other specified postprocedural states; K21.9 Gastro-esophageal reflux disease without esophagitis
CPT/HCPCS: 36415; 80048; 80053; 80061; 82272; 82962; 83721; 83735; 84439; 84443; 84484; 85025; 85610; 85730; 87804; 87807; 93005; 93010; 93306-TC; 96372; G0378